=== PATIENT | female | born 1925 | race Caucasian/White ===

== ENCOUNTER 2016-12-19 11:13 | Inpatient (IN) ==
[2016-12-19] MEDS ORDERED: SALINE FLUSH 10ml SYRINGE IV ONE (11:14)
[2016-12-19] MEDS ORDERED: MIDAZOLAM 2mg/2ml INJECTION IVP ONE (11:14)
[2016-12-19] MEDS ORDERED: FentaNYL 100 MCG/2 ML INJECTION IVP ONE (11:14)
--- OUTSIDE RECORDS SUMMARY | 2016-12-19 11:33 | External Medical Summary | Summary of Care ---
:1925 Author Name Cris Reveles M.A., A Jill Address [address] [place], [place] [id number] Care Team Providers Name Role Phone Rosey Hatch, Nalini Gonzales Unavailable Unavailable Cris Reveles M.A., A Jill Unavailable Unavailable Tarwater D.O., Mohamud Unavailable Unavailable Nela Hatch, Derian Unavailable Unavailable PCP Not Assigned Unavailable Unavailable Unavailable Unavailable Unavailable Functional Status Functional Status Health Issues Name Dates Details Functional status health issues are not documented Status: Cognitive Status Health Issues Name Dates Details Cognitive status health issues are not documented Status: Problems Name Dates Details Lower back pain (724.2, M54.5) Status: Active Joint pain, knee (719.46, M25.569) Status: Active Pre-procedural examination (V72.84, Z01.818) Status: Active Fainting (780.2, R55) Status: Active Osteoarthritis of knee (715.36, M17.10) Status: Active Diabetic retinopathy (250.50, E11.319) Status: Active Arthralgia of multiple sites (719.49, M25.50) Status: Active Hypertension (401.9, I10) Status: Active Hypothyroidism (244.9, E03.9) Status: Active Atrial fibrillation (427.31, I48.91) Status: Active Diabetes mellitus (250.00, E11.9) Status: Active Posterior capsular opacification, 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 Quantity: 30 Refills: 0 Christian Currie M.D. Start Active BL Glucosamine-Chondroitin 250-200 MG TABS TAKE DIRECTED. Quantity: 30 Refills: 0 Rosey HatchChristian Start Active Calcium 600 + D 600-200 MG-UNIT Oral Tablet TAKE 1 TABLET DAILY. Quantity: 0 Refills: 0 Rosey HatchChristian Start Active Test Strips accucheck compact strips Quantity: 100 Refills: 3 Rosey HatchChristian Start Active Vitamin E 400 UNIT Oral Capsule Take one capsule daily. Refills: 0 Rosey HatchChristian Start 17-Nov-2009 Active Fish Oil 1200 MG Oral Capsule Take one tablet daily. Refills: 0 Rosey HatchChristian Start 17-Nov-2009 Active Potassium Chloride ER 8 MEQ Oral Tablet Extended Release TAKE 2 TABLET DAILY. Quantity: 180 Refills: 3 Nela MamieDerian Start 10-May-2010 Active Levoxyl 88 MCG Oral Tablet TAKE 1 TABLET DAILY. Quantity: 90 Refills: 4 Rosey HatchChristian Start 10-May-2010 Active Lisinopril 2.5 MG Oral Tablet TAKE 1 TABLET Daily in the evening Refills: 0 Tarryder DMohamud Mendez Start Active Furosemide 80 MG Oral Tablet TAKE 1 TABLET TWICE DAILY. 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 Procedures not documented Immunization Name Dates Details Pneumo (Pneumovax) on: 31-Jan-1999 Td on: 18-Jan-2004 Pneumo on: 14-Feb-2009 Family History Mother Name Dates Details Family history of Heart Disease (V17.49) Status: Active Father Name Dates Details Family history of Heart Disease (V17.49) Status: Active Social History Name Dates Details - Status: Smoking Status Name Dates Details Former smoker Vital Signs Date Test Result Details No Known Vitals to report Results Date Description Value Details Results not documented Plan of Care Name Dates Details Planned Observations Planned Goals not documented Instructions Name Dates Details Instructions not documented Encounters Appointment; Sathish Lujna M.D. On 04-Jun-2016 Encounter Diagnosis: Problem not documented 13:00 Appointment; Mohamud Neal D.O. On Encounter Diagnosis: Problem not documented 10:45
--- OUTSIDE RECORDS SUMMARY | 2016-12-19 11:33 | External Medical Summary | Referral Summary ---
:1925 [facility] Address [address] [place] [address] [place] [address] Care Team Providers Name Role Phone Ector Cabrera Primary Care Physician Encounter VC Date(s): 06/22/15 - 06/22/15 [facility] [place] [phone] [place] Discharge Disposition: 01-Home or Self Care Attending Physician: Ector Cabrera DO Admitting Physician: Ector Cabrera DO Vital Signs Most recent to oldest [Reference Range]: 1 Peripheral Pulse Rate [60-100 bpm] 89 bpm (06/22/15 9:38 AM) Blood Pressure [90-140/60-90 mmHg] 113/90 mmHg (06/22/15 9:38 AM) SpO2 96 % (06/22/15 9:38 AM) Problem List Condition Effective Dates Status Health Status Informant Obesity(Confirmed) Active patient Allergies, Adverse Reactions, Alerts Substance Reaction Severity Status sulfamethoxazole1 Active 1N/V Medications acetaminophen 325 mg oral tablet 650 mg 2 tabs, Oral, q6hr, as needed for pain, 0 Refill(s) Start Date: 06/15/15 Status: Orderedcalcium citrate Oral, BID, 0 Refill(s) Start Date: 05/05/14 Status: OrderedCentrum Daily, 0 Refill(s) Start Date: 05/05/14 Status: OrderedCoreg 6.25 mg, Oral, BID, 0 Refill(s) Start Date: 01/25/14 Status: Orderedfurosemide 40 mg oral tablet See Instructions, take 2 tablets at breakfast and 1 tablet at lunch, 0 Refill(s) Start Date: 01/25/14 Status: Orderedglucosamine Oral, 0 Refill(s) Start Date: 06/22/15 Status: Orderedlevothyroxine 88 mcg (0.088 mg) oral tablet 88 mcg 1 tabs, Oral, Daily, # 90 tabs, 3 Refill(s), Pharmacy: [facility], 1 tabs Oral Daily,x90 days Start Date: 01/18/15 Stop Date: 01/13/16 Status: Orderedlisinopril 2.5 mg oral tablet 1 tabs, Oral, Daily, 0 Refill(s) Start Date: 01/25/14 Status: OrderedMisc Medication See Instructions, glucosomine 15,000 g. daily, 0 Refill(s) Start Date: 05/05/14 Status: OrderedOmega Essentials caps, Oral, BID, 0 Refill(s) Start Date: 05/05/14 Status: Orderedpotassium chloride 8 mEq oral tablet, extended release 2 tabs, Oral, BID, 0 Refill(s) Start Date: 01/25/14 Status: OrderedpredniSONE 20 mg oral tablet 20 mg 1 tabs, Oral, Daily, X 5 days, # 5 tabs, 0 Refill(s), Pharmacy: [facility] #[id number], 1 tabs Oral Daily,x5 days Start Date: 06/22/15 Stop Date: 06/27/15 Status: OrderedProAir RespiClick 90 mcg/inh inhalation powder 2 puffs, Inhalation, q4hr, # 1 inhalers, 4 Refill(s), Pharmacy: [facility] #[id number] Start Date: 06/22/15 Status: Orderedsodium chloride 0.9% nasal spray 1 sprays, Nasal, q2hr, as needed for dry nasal passages, # 45 mL, 0 Refill(s) Start Date: 06/15/15 Status: Orderedvitamin E Oral, Daily, 0 Refill(s) Start Date: 05/05/14 Status: Orderedwarfarin 1 mg oral tablet mg tabs, Oral, Daily, 10mg on , W, F 8 mg on , Fri, , , 0 Refill(s) Start Date: 01/25/14 Status: OrderedZithromax Z-Mani 250 mg oral tablet 1 packets, Oral, Daily, as directed on package labeling, X 5 days, # 6 tabs, 0 Refill(s), Pharmacy: [facility] #[id number], 1 packets Oral Daily,x5 days, Instr:as directed on package labeling Start Date: 06/22/15 Stop Date: 06/27/15 Status: Ordered Results No data available for this section Immunizations Vaccine Date Refusal Reason influenza virus vaccine, inactivated 01/01/14 pneumococcal 13-valent conjugate vaccine 01/25/14 pneumococcal 23-polyvalent vaccine 02/14/09 pneumococcal 23-polyvalent vaccine 01/31/99 tetanus toxoid 01/18/04 zoster vaccine live 01/25/14 Procedures Procedure Date Related Diagnosis Body Site Carpal tunnel Cataracts Social History Social History Type Response Smoking Status Former smoker; Type: Cigarettes Assessment and Plan No data available for this section
--- OUTSIDE RECORDS SUMMARY | 2016-12-19 11:33 | External Medical Summary | Summary of Care ---
:1925 Author Organization [facility] Address [address] [place] [address] Phone Care Team Providers Name Role Phone Rosey Hatch, Nalini Gonzales Unavailable Unavailable Mohamud Neal D.O. Unavailable Unavailable Nela Hatch, Derian Unavailable Unavailable [...] Status: Active Myopia (367.1, H52.10) Status: Active Medications Name Dates Details Centrum Oral Tablet TAKE 1 TABLET DAILY. Quantity: 30 Refills: 0 Rosey Hatch, Christian Gayle Start Active BL Glucosamine-Chondroitin 250-200 MG TABS TAKE DIRECTED. Quantity: 30 Refills: 0 Rosey Hatch, Christian Gayle Start Active Calcium 600 + D 600-200 MG-UNIT Oral Tablet TAKE 1 TABLET DAILY. Quantity: 0 Refills: 0 Yackley M.D.Christian Start Active Test Strips accucheck compact strips [...] TABLET DAILY. Quantity: 180 Refills: 3 Nela Hatch, Derian Start 10-May-2010 Active Levoxyl 88 MCG Oral Tablet TAKE 1 TABLET DAILY. Quantity: 90 Refills: 4 Rosey HatchChristian Start 10-May-2010 Active Aspirin 325 MG Oral Tablet TAKE 1/2 TABLET DAILY. Refills: 0 Rosey HatchChristian Start Active Atenolol 25 MG Oral Tablet TAKE 2 IN THE AM AND 1 IN THE PM Quantity: 270 Refills: 30 Nela Hatch, Derian Start 16-Mar-2012 Active Warfarin Sodium 1 MG Oral Tablet TAKE THREE TABLETS BY MOUTH EVERY OTHER DAY Quantity: 270 Refills: 98 Rosey HatchChristian Start 15-Jul-2013 Active Warfarin Sodium 5 MG Oral Tablet Take one tablet daily. Quantity: 90 Refills: 3 Rosey Hatch, Christian Gayle Start 18-Feb-2013 Active Warfarin Sodium 1 MG Oral Tablet TAKE 2 TABLETS DAILY. Quantity: 180 Refills: 3 Rosey Hatch Christian Gayle Start 18-Feb-2013 Active Lisinopril 2.5 MG Oral Tablet TAKE 1 TABLET Daily in the evening Refills: 0 Mohamud Neal D.O. Start Active Furosemide 40 MG Oral Tablet TAKE 1 TABLET TWICE DAILY. Quantity: 180 Refills: 3 Nela Hatch, Derian Start Active Warfarin Sodium 1 MG Oral Tablet TAKE THREE TABLETS BY MOUTH EVERY OTHER DAY Quantity: 270 Refills: 5 Rosey Hatch, Christian Nalini Start 18-Feb-2013 Active Allergies and Adverse Reactions Name Dates Details Sulfa Drugs (Allergy) Reaction: Nausea, Vomiting Status: Active Procedures Procedure Dates Details History of Fine [...] Details Planned Observations Planned Goals not documented Planned Encounters Appointment; Provider: Derian Rondon M.D. On 01-Apr-2012 10:00 Appointment; Provider: Derian Rondon M.D. On 25-Mar-2012 10:00 Instructions Name Dates Details Instructions not documented Encounters Appointment; Mohamud Neal D.O. On Encounter Diagnosis: Problem not documented 10:45
--- OUTSIDE RECORDS SUMMARY | 2016-12-19 11:33 | External Medical Summary | Referral Summary ---
:1925 Author Organization [facility] Address [address] [place] [address] [place] [address] Care Team Providers Name Role Phone Ector Cabrera Primary Care Physician Encounter VC Date(s): 01/18/15 - 01/18/15 [facility] [place] [phone] Discharge Diagnosis: Knee pain, right Discharge Diagnosis: Adult onset hypothyroidism Discharge Disposition: 01-Home or Self Care Attending Physician: Ector Cabrera DO Admitting Physician: Ector Cabrera DO Vital Signs Most recent to oldest [Reference Range]: 1 Temperature Tympanic [36.6-38.1 degC] 36 degC *LOW* (01/18/15 1:21 PM) Peripheral Pulse Rate [60-100 bpm] 78 bpm (01/18/15 1:21 PM) Blood Pressure [90-140/60-90 mmHg] 142/82 mmHg *HI* (01/18/15 1:21 PM) Problem List Condition Effective Dates Status Health Status Informant Obesity(Confirmed) Active patient Allergies, Adverse Reactions, Alerts Substance Reaction Severity Status sulfamethoxazole1 Active 1N/V Medications aspirin 325 mg oral tablet 0.5 tabs, Oral, Daily, 0 Refill(s) Start Date: 01/25/14 Status: Orderedcalcium citrate Oral, BID, 0 Refill(s) Start Date: 05/05/14 Status: OrderedCentrum Daily, 0 Refill(s) Start Date: 05/05/14 Status: OrderedCoreg 12.5 mg, Oral, BID, 0 Refill(s) Start Date: 01/25/14 Status: Orderedfurosemide 40 mg oral tablet 2 tabs, Oral, BID, 0 Refill(s) Start Date: 01/25/14 Status: Orderedlevothyroxine 88 mcg (0.088 mg) oral tablet 88 mcg 1 tabs, Oral, Daily, # 90 tabs, 3 Refill(s), Pharmacy: [facility], 1 tabs Oral Daily,x90 days [...] BID, 0 Refill(s) Start Date: 01/25/14 Status: Orderedvitamin E Oral, Daily, 0 Refill(s) Start Date: 05/05/14 Status: Orderedwarfarin 1 mg oral tablet tabs, Oral, Daily, 7 mg. and 8 mg., 0 Refill(s) Start Date: 01/25/14 Status: OrderedZyrTEC Daily, 0 Refill(s) Start Date: 06/07/14 Status: Ordered Results Chemistry Most recent to oldest [Reference Range]: 1 TSH with Reflex Free T4 [0.35-4.94] 2.93 (01/18/15 2:13 PM) Immunizations Vaccine Date Refusal Reason influenza virus vaccine, inactivated 01/01/14 pneumococcal 13-valent conjugate vaccine 01/25/14 pneumococcal 23-polyvalent vaccine 02/14/09 pneumococcal 23-polyvalent vaccine 01/31/99 tetanus toxoid 01/18/04 zoster vaccine live 01/25/14 Procedures Procedure Date Related Diagnosis Body Site Arthrocentesis, aspiration and/or injection, 01/18/15 major joint or bursa (eg, shoulder, hip, knee, subacromial bursa); without ultrasound guidance Carpal tunnel Cataracts Social History Social History Type Response Smoking Status Former smoker; Type: Cigarettes Assessment and Plan Extracted from: Title: Ambulatory Patient Education Author: Ector Cabrera DO Date: 01/18/15 Family Medicine Hypothyroidism The thyroid is a large gland located in the lower front of your neck. The thyroid gland helps control metabolism. Metabolism is how your body handles food. It controls metabolism with the hormone thyrox ine. When this gland is underactive (hypothyroid), it produces too little hormone. CAUSES These include: Absence or destruction of thyroid tissue. Goiter due to iodine deficiency. Goiter due to medications. Congenital defects (since ). Problems with the pituitary. This causes a lack of TSH (thyroid stimulating hormone). This hormone tells the thyroid to porcelain turner more hormone. SYMPTOMS Lethargy (feeling as though you have no energy) Cold intolerance Weight gain (in spite of normal food intake) Dry skin Coarse hair Menstrual irregularity (if severe, may lead to infertility) Slowing of thought processes Cardiac problems are also caused by insufficient amounts of thyroid hormone. Hypothyroidism in the is cretinism, and is an extreme form. It is important that this form be treated adequately and immediately or it will lead rapidly to retarded physical and mental development. DIAGNOSIS To prove hypothyroidism, your caregiver may do blood tests and ultrasound tests. Sometimes the signs are hidden. It may be necessary for your caregiver to watch this illness with blood tests either before or after diagnosis and treatment. TREATMENT Low levels of thyroid hormone are increased by using synthetic thyroid hormone. This is a safe, effective treatment. It usually takes about four weeks to gain the full effects of the medication. After y ou have the full effect of the medication, it will generally take another four weeks for problems to leave. Your caregiver may start you on low doses. If you have had heart problems the dose may be grad ually increased. It is generally not an emergency to get rapidly to normal. HOME CARE INSTRUCTIONS Take your medications as your caregiver suggests. Let your caregiver know of any medications you are taking or start taking. Your caregiver will help you with dosage schedules. As your condition improves, your dosage needs may increase. It will be necessary to have continuing blood tests as suggested by your caregiver. Report all suspected medication side effects to your caregiver. SEEK MEDICAL CARE IF: Seek medical care if you develop: Sweating. Tremulousness (tremors). Anxiety. Rapid weight loss. Heat intolerance. Emotional swings. Diarrhea. Weakness. SEEK IMMEDIATE MEDICAL CARE IF: You develop chest pain, an irregular heart beat (palpitations), or a rapid heart beat. MAKE SURE YOU: Understand these instructions. Will watch your condition. Will get help right away if you are not doing well or get worse. Document Released: 02/17/2006 Document Revised: 05/11/2012 Document Reviewed: 10/07/2008 [facility] Patient Information 2015 [employer]. This information is not intended to replace advice given to you by your health care provider. Make sure you discuss any questions you have with your health care provider. Joint Injection Care After Refer to this sheet in the next few days. These instructions provide you with information on caring for yourself after you have had a joint injection. Your caregiver also may give you more specific inst ructions. Your treatment has been planned according to current medical practices, but problems sometimes occur. Call your caregiver if you have any problems or questions after your procedure. After any type of joint injection, it is not uncommon to experience: Soreness, swelling, or bruising around the injection site. Mild numbness, tingling, or weakness around the injection site caused by the numbing medicine used before or with the injection. It also is possible to experience the following effects associated with the specific agent after injection: Iodine-based contrast agents: Allergic reaction (itching, hives, widespread redness, and swelling beyond the injection site). Corticosteroids (These effects are rare.): Allergic reaction. Increased blood sugar levels (If you have diabetes and you notice that your blood sugar levels have increased, notify your caregiver). Increased blood pressure levels. Mood swings. Hyaluronic acid in the use of viscosupplementation. Temporary heat or redness. Temporary rash and itching. Increased fluid accumulation in the injected joint. These effects all should resolve within a day after your procedure. HOME CARE INSTRUCTIONS Limit yourself to light activity the day of your procedure. Avoid lifting heavy objects, bending, stooping, or twisting. Take prescription or dzyq-hfd-aadjitc pain medication as directed by your caregiver. You may apply ice to your injection site to reduce pain and swelling the day of your procedure. Ice may be applied 03-04 times: Put ice in a plastic bag. Place a towel between your skin and the bag. Leave the ice on for no longer than 15-20 minutes each time. SEEK IMMEDIATE MEDICAL CARE IF: Pain and swelling get worse rather than better or extend beyond the injection site. Numbness does not go away. Blood or fluid continues to leak from the injection site. You have chest pain. You have swelling of your face or tongue. You have trouble breathing or you become dizzy. You develop a fever, chills, or severe tenderness at the injection site that last longer than 1 day. MAKE SURE YOU: Understand these instructions. Watch your condition. Get help right away if you are not doing well or if you get worse. Document Released: 10/31/2011 Document Revised: 05/11/2012 Document Reviewed: 10/31/2011 [facility] Patient Information 2015 [facility]. This information is not intended to replace advice given to you by your health care provider. Make sure you discuss any questions you have with your health care provider. Knee Injection Joint injections are shots. Your caregiver will place a needle into your knee joint. The needle is used to put medicine into the joint. These shots can be used to help treat different painful knee condi tions such as osteoarthritis, bursitis, local flare-ups of rheumatoid arthritis , and pseudogout. Anti-inflammatory medicines such as corticosteroids and anesthetics are the most common medicines used for joint and soft tissue injections. PROCEDURE The skin over the kneecap will be cleaned with an antiseptic solution. Your caregiver will inject a small amount of a local anesthetic (a medicine like Novocaine) just under the skin in the area that was cleaned. After the area becomes numb, a second injection is done. This second injection usually includes an anesthetic and an anti-inflammatory medicine called a steroid or cortisone. The needle is carefull y placed in between the kneecap and the knee, and the medicine is injected into the joint space. After the injection is done, the needle is removed. Your caregiver may place a bandage over the injection site. The whole procedure takes no more than a couple of minutes. BEFORE THE PROCEDURE Wash all of the skin around the entire knee area. Try to remove any loose, scaling skin. There is no other specific preparation necessary unless advised otherwise by your caregiver. LET YOUR CAREGIVER KNOW ABOUT: Allergies. Medications taken including herbs, eye drops, over the counter medications , and creams. Use of steroids (by mouth or creams). Possible , if applicable. Previous problems with anesthetics or Novocaine. History of blood clots (thrombophlebitis). History of bleeding or blood problems. Previous surgery. Other health problems. RISKS AND COMPLICATIONS Side effects from cortisone shots are rare. They include: Slight bruising of the skin. Shrinkage of the normal fatty tissue under the skin where the shot was given. Increase in pain after the shot. Infection. Weakening of tendons or tendon rupture. Allergic reaction to the medicine. Diabetics may have a temporary increase in their blood sugar after a shot. Cortisone can temporarily weaken the immune system. While receiving these shots, you should not get certain vaccines. Also, avoid contact with anyone who has chickenpox or measles. Especially if yo u have never had these diseases or have not been previously immunized. Your immune system may not be strong enough to fight off the infection while the cortisone is in your system. AFTER THE PROCEDURE You can go home after the procedure. You may need to put ice on the joint 15-20 minutes every 3 or 4 hours until the pain goes away. You may need to put an elastic bandage on the joint. HOME CARE INSTRUCTIONS Only take xscf-aev-ryvuuzc or prescription medicines for pain, discomfort , or fever as directed by your caregiver. You should avoid stressing the joint. Unless advised otherwise, avoid activities that put a lot of pressure on a knee joint, such as: Jogging. Bicycling. Recreational climbing. Hiking. Laying down and elevating the leg/knee above the level of your heart can help to minimize swelling. SEEK MEDICAL CARE IF: You have repeated or worsening swelling. There is drainage from the puncture area. You develop red streaking that extends above or below the site where the needle was inserted. SEEK IMMEDIATE MEDICAL CARE IF: You develop a fever. You have pain that gets worse even though you are taking pain medicine. The area is red and warm, and you have trouble moving the joint. MAKE SURE YOU: Understand these instructions. Will watch your condition. Will get help right away if you are not doing well or get worse. Document Released: 05/11/2007 Document Revised: 05/11/2012 Document Reviewed: 02/05/2008 [employer] Patient Information 2015 [employer]. This information is not intended to replace advice given to you by your health care provider. Make sure you discuss any questions you have with your health care provider. No follow up information was provided. Extracted from: Title: Hypothyroidism and right knee injection Author: Ector Cabrera DO Date: 01/18/15 Assessment/Plan Adult onset hypothyroidism 1. Continue levothyroxine at 88 g per day. 2. TSH checked today, report is pending. We will adjust her medication accordingly. Ordered: Office Visit Level 4 Est 47691 TSH with Reflex Free T4 Knee pain, right 1. History and clinical finding is consistent with degenerative arthritis of the knee. Treatment plan discussed in detail with the patient. I advised her that if steroid injecti on has helped in the pastthen it would be best that we do the steroid. Lately the insurance companies have not been wanting to pay for Synvisc. Patient voiced understanding and was agreeable for the injection today. Procedure: Knee injection. Indication: Joint pain secondary to degenerative arthritis. Location: Right Medication: 1cc 1% Lidocaine without epinephrine, 1cc Marcaine, 80mg Kenalog. Description: Following verbal informed consent, the patient was placed in a supine position with the knee flexed at 15. Using lateral approach, landmarks identified for injection. The area was cleansed with alcohol, followed by Betadine. Using sterile technique, a combination of the lidocaine, Marcaine and Kenalog was injected into the synovial joint with minimal resistance. Patient tolerated procedure well. The area was cleansed and compression bandage was applied. Wound care instructions provided. Patient advised to follow-up if there is any concerns of swelling, worsening pain, redness, or any concern for infection. We may repeat the injection in 3 months. If treatment does not last for 3 months, then alternative treatments may be needed, or referral to orthopedic surgeon. Patient voiced understanding of all the above information and instructions. Ordered: Arthro/Asp Major Joint Inj (Shoulder, Hip, Knee) Office Visit Level 4 Est 84373 Orders: levothyroxine, 88 mcg 1 tabs, Oral, Daily, # 90 tabs, 3 Refill(s), Pharmacy: [facility], 1 tabs Oral Daily,x90 days
--- OUTSIDE RECORDS SUMMARY | 2016-12-19 11:33 | External Medical Summary | Referral Summary ---
:1925 Author Organization [facility] [place] [address] Care Team Providers Name Role Phone Ector Cabrera Primary Care Physician Encounter VC Date(s): 02/06/16 - 02/06/16 [facility] [place] [phone] [place] Discharge Diagnosis: CKD (chronic kidney disease), stage III Discharge Diagnosis: Right knee DJD Discharge Diagnosis: Medication management Discharge Diagnosis: HTN (hypertension) Discharge Diagnosis: Chronic CHF Discharge Disposition: 01-Home or Self Care Attending Physician: Ector Cabrera DO Admitting Physician: Ector Cabrera DO Vital Signs Most recent to oldest [Reference Range]: 1 Temperature Tympanic [36.6-38.1 degC] 36 degC *LOW* (02/06/16 10:00 AM) Peripheral Pulse Rate [60-100 bpm] 98 bpm (02/06/16 10:00 AM) Blood Pressure [90-140/60-90 mmHg] 127/80 mmHg (02/06/16 10:00 AM) Problem List Condition Effective Dates Status Health Status Informant Obesity(Confirmed) Active patient Allergies, Adverse Reactions, Alerts Substance Reaction Severity Status sulfamethoxazole1 Active 1N/V Medications acetaminophen 325 mg oral tablet 650 mg 2 tabs, Oral, q6hr, as needed for pain, 0 Refill(s) Start Date: 06/15/15 Status: Orderedcalcium citrate Oral, BID, 0 Refill(s) Start Date: 05/05/14 Status: Orderedcarvedilol See Instructions, 3.5mg BID, 0 Refill(s) Start Date: 02/06/16 Status: OrderedCentrum Daily, 0 Refill(s) Start Date: 05/05/14 Status: Orderedfurosemide 40 mg oral tablet See Instructions, take 2 tablets at breakfast and 1 tablet at lunch, 0 Refill(s) Start Date: 01/25/14 Status: OrderedGlucometer Lancets (DME) DME Item ORDER: Accu-chek Compact Plus Lancets, test once every morning fasting. Dx: E11.9, See Instructions, # 1 boxes, 3 Refill(s), Pharmacy: [facility] #[id number], ORDER: Accu-chek Compact Plus Lancets, test once every morning fasting. Dx: E11... Start Date: 12/20/15 Status: OrderedGlucometer strips (DME) DME Item ORDER: Accu-chek Compact Plus Test Strips, test once every morning fasting. Dx: E11.9, SeeInstructions, # 1 bottles, 3 Refill(s), Pharmacy: [facility] #[id number], ORDER: Accu-chek CompactPlus Test Strips, test once every morning fasting... Start Date: 12/20/15 Status: Orderedglucosamine Oral, 0 Refill(s) Start Date: 06/22/15 Status: Orderedlevothyroxine 88 mcg (0.088 mg) oral tablet See Instructions, Take 1 tablet by mouth every day, # 90 tabs, 2 Refill(s), eRx : [facility], Take 1 tablet by mouth every day Start Date: 12/18/15 Status: Orderedlisinopril 2.5 mg oral tablet 1 [...] tablet mg tabs, Oral, Daily, 10mg on M, W, F 8 mg on Sa, Fri, , Thur, 0 Refill(s) Start Date: 01/25/14 Status: Ordered Results No data available for this section Immunizations Vaccine Date Refusal Reason influenza virus vaccine, inactivated 11/29/15 influenza virus vaccine, inactivated 01/01/14 pneumococcal 13-valent conjugate vaccine 02/06/16 pneumococcal 13-valent conjugate vaccine 01/25/14 pneumococcal 23-polyvalent vaccine 02/14/09 pneumococcal 23-polyvalent vaccine 01/31/99 tetanus toxoid 01/18/04 zoster vaccine live 01/25/14 Procedures Procedure Date Related Diagnosis Body Site Carpal tunnel Cataracts Social History Social History Type Response Smoking Status Former smoker; Type: Cigarettes Assessment and Plan Extracted from: Title: Office Visit Note Author: RickEctor Date: 02/06/16 Assessment/Plan 1.Medication management 1. Continue with medications as previous. 2. Repeat CMP and CBC in 6 months. 3. Follow-up in 6 months for reevaluation 4. Pneumonia 23 vaccination given today. Ordered: Office Visit Level 4 Est 13044 2.Right knee DJD 1. We will check with her insurance if they cover Synvisc, if they do then we will order it and have her come in weekly for 3 intra-articular injection. 2. Continue with Tylenol as needed for pain. 3. Continue with the use of walker for support. Ordered: Office Visit Level 4 Est 19956 3.HTN (hypertension) 1. Blood pressure is controlled at this time. 2. Continue with low salt diet. 3. Continue with current medications. Ordered: Office Visit Level 4 Est 07106 4.Chronic CHF 1. Low-salt diet. 2. The blood pressure management. 3. Fluid restriction as per Dr. Flower. Ordered: Office Visit Level 4 Est 44512 5.CKD (chronic kidney disease), stage III 1. Avoid dehydration 2. Avoid NSAIDs, instead she may use Tylenol for pain 3. Recheck basic metabolic profile in 6 months.
--- OUTSIDE RECORDS SUMMARY | 2016-12-19 11:33 | External Medical Summary | Summary of Care ---
:1925 Author Organization [facility] Address [address] [place] [address] Phone Care Team Providers Name Role Phone [...] [id number]) Status: Active Medications Name Dates Details Calcium 600 + D 600-200 MG-UNIT Oral Tablet TAKE 1 TABLET DAILY. Quantity: 0 Refills: 0 Rosey Hatch, Christian Gayle Start Active Vitamin E 400 UNIT Oral Capsule Take one capsule daily. Refills: 0 Rosey Hatch, Christian Gayle Start 17-Nov-2009 Active Fish Oil 1200 MG Oral Capsule Take one tablet daily. Refills: 0 Rosey Hatch, Christian Gayle Start 17-Nov-2009 Active Potassium Chloride ER 8 MEQ Oral Tablet Extended Release TAKE 2 TABLET DAILY. Quantity: 180 Refills: 3 Nela HatchDerian Start 10-May-2010 Active Levoxyl 88 MCG Oral Tablet TAKE 1 TABLET DAILY. Quantity: 90 Refills: 4 Rosey Hatch, Christian Gayle Start 10-May-2010 Active Furosemide 80 MG Oral Tablet TAKE 1 TABLET TWICE DAILY. Refills: 0 Start 04-Jun-2016 Active Warfarin Sodium 2 MG Oral Tablet 8mg x 4 days per week, 10mg x 2 days per week, 5mg x 1 day per week Refills: 0 Start 04-Jun-2016 Active Lisinopril 2.5 MG Oral Tablet TAKE 1 TABLET Daily in the evening Refills: 0 Mohamud Neal D.O. Start Active Test Strips accucheck compact strips Quantity: 100 Refills: 3 Rosey Hatch, Christian Gayle Start Active BL Glucosamine-Chondroitin 250-200 MG TABS TAKE DIRECTED. Quantity: 30 Refills: 0 Rosey Hatch, Christian Gayle Start Active Centrum Oral Tablet TAKE 1 TABLET DAILY. Quantity: 30 Refills: 0 Rosey Hatch, Christian Gayle Start Active Allergies and Adverse Reactions Name Dates [...] Dates Details Instructions not documented Encounters Appointment; Shilpa Reveles M.A.|Cris On 04-Jun-2016 Encounter Diagnosis: Problem not documented 13:30 Appointment; Sathish Lujan M.D. On 04-Jun-2016 Encounter Diagnosis: Problem not documented 13:00 Appointment; Mohamud Neal D.O. On Encounter Diagnosis: Problem not documented 10:45"
--- OUTSIDE RECORDS SUMMARY | 2016-12-19 11:33 | External Medical Summary | Referral Summary ---
:1925 Author Organization [facility] Address [address] [place] [address] Care Team Providers Name Role Phone CarmenzeeshanEctor Primary Care Physician Encounter [facility] [phone] Date(s): 08/30/14 - 08/30/14 [facility] [address] [place] [address]- [place] Discharge Diagnosis: SNHL (sensorineural hearing loss) Discharge Diagnosis: ETD (eustachian tube dysfunction) Discharge Disposition: 01-Home or Self Care Attending Physician: Kyung Deleon DO Admitting Physician: Kyung Deleon DO Vital Signs No data available for this section Problem List Condition Effective Dates Status Health [...] Daily, # 90 tabs, 3 Refill(s), Pharmacy: [facility], 1 tabs Oral Daily,x90 days [...] Refill(s) Start Date: 06/07/14 Status: Ordered Results No data available for [...] Extracted from: Title: Ambulatory Patient Education Author: Kyung Deleon DO Date: Family Medicine Hearing Loss A hearing loss is sometimes called deafness. Hearing loss may be partial or total. CAUSES Hearing loss may be caused by: Wax in the ear canal. Infection of the ear canal. Infection of the middle ear. Trauma to the ear or surrounding area. Fluid in the middle ear. A hole in the eardrum (perforated eardrum ). Exposure to loud sounds or music. Problems with the hearing nerve. Certain medications. Hearing loss without wax, infection, or a history of injury may mean that the nerve is involved. Hearing loss with severe dizziness, nausea and vomiting or ringing in the ear may suggest a hearing nerve irritation or problems in the middle or inner ear. If hearing loss is untreated, there is a greater likelihood for residual or permanent hearing loss. DIAGNOSIS A hearing test (audiometry) assesses hearing loss. The audiometry test needs to be performed by a speech and hearing director (electrical tester ). TREATMENT Treatment for recent onset of hearing loss may include: Ear wax removal. Medications that kill germs (antibiotics ). Cortisone medications. Prompt follow up with the appropriate specialist. Return of hearing depends on the cause of your hearing loss, so proper medical follow-up is important. Some hearing loss may not be reversible, and a caregiver should discuss care and treatment options with you. SEEK MEDICAL CARE IF: You have a severe headache, dizziness, or changes in vision. You have new or increased weakness. You develop repeated vomiting or other serious medical problems. You have a fever. Document Released: 02/17/2006 Document Revised: 05/11/2012 Document Reviewed: 06/14/2010 [facility] Patient Information 2014 [employer]. No follow up information was provided. Extracted from: Title: Office Visit Note Author: Kyung Deleon DO Date: 08/30/14 Assessment/Plan ETD (eustachian tube dysfunction) Passes on steroid taper Nasocort BID Defer decongestants 2/2 heart Reviewed options to treat eustachian tube dysfunction. Options reviewed including, medical mgmt, steroids, nasal spray, allergy treatment and observation. There are not surgical options that are readi ly available to treat eustachian tube dysfunction. We discussed that in some individuals a myringotomy tube will help but in some it can worsen. Additionally , the risk of a TM perforation is higher in ETD. Will trial above treatment and FU PRN SNHL (sensorineural hearing loss) Likely secondary to hearing loss in the right ear Recheck in 6 mos
--- OUTSIDE RECORDS SUMMARY | 2016-12-19 11:33 | External Medical Summary | Referral Summary ---
:1925 Author [facility] Address [address] [place] [address] [place] [address] Care Team Providers Name Role Phone Ector Cabrera Primary Care Physician Encounter [facility] Date(s): 01/23/15 - 01/23/15 [facility] [place] [address] Discharge Disposition: 01-Home or Self Care Attending Physician: Ector Cabrera DO Admitting Physician: Ector Cabrera DO Vital Signs Most recent to oldest [Reference Range]: 1 Temperature Tympanic [36.6-38.1 degC] 35.8 degC *LOW* (01/23/15 9:41 AM) Peripheral Pulse Rate [60-100 bpm] 94 bpm (01/23/15 9:41 AM) Blood Pressure [90-140/60-90 mmHg] 155/80 mmHg *HI* (01/23/15 9:41 AM) Problem List Condition Effective Dates Status [...] Daily, # 90 tabs, 3 Refill(s), Pharmacy: [facility], 1 tabs Oral Daily,x90 days [...] Diagnosis Body Site Arthrocentesis, aspiration and/or injection, 01/23/15 major joint or bursa (eg, shoulder, hip, knee, subacromial bursa); without ultrasound guidance Carpal tunnel Cataracts Social History Social History Type Response Smoking Status Former smoker; Type: Cigarettes Assessment and Plan Extracted from: Title: Office Visit Note Author: Ector Cabrera DO Date: 01/23/15 Assessment/Plan Left knee pain Pathophysiology of this presentation, and differential diagnosis, discussed in detail with the rafiq neely . All questions were answered. 1. Clinical finding consistent with degenerative arthritis of the knee joint. Knee injection recommended to which the patient agreed. Procedure: Knee injection Indication: Symptomatic arthritis Location: Left knee Medications: 80 mg of Kenalog, 1 mL of Marcaine and 1 mL of lidocaine without epinephrine. Description: Following informed consent, the patient was placed in the supine position, landmarks for knee injection identified and demarcated. The lateral aspect of the knee was cleansed with Betadine to create a sterile field. Using sterile technique, a combination of Kenalog, Marcaine and lidocaine was injected into the synovial space. Patient tolerated treatment well. Dry dressing was applied and wound care instructions provided. Follow-up as needed. Ordered: Arthro/Asp Major Joint Inj (Shoulder, Hip, Knee) 53244 Office Visit Level 3 Est 97353
--- OUTSIDE RECORDS SUMMARY | 2016-12-19 11:33 | External Medical Summary | Summary of Care ---
:1925 Author Care Team Providers Name Role Phone Nalini Currie M.D. Unavailable Unavailable Derian Rondon M.D. Unavailable Unavailable PCP Not Assigned Primary Care Provider Unavailable Unavailable Unavailable Unavailable Functional Status Functional [...] Status: Active Fainting (780.2, R55) Status: Active Myopia (367.1, H52.10) Status: Active Osteoarthritis of knee (715.96, M17.9) Status: Active Diabetic retinopathy (250.50, E11.319) Status: Active Arthralgia of multiple sites (719.49, M25.50) Status: Active Posterior capsular opacification, obscuring vision (366.53, H26.499) Status : Active Pseudophakia of both eyes (V43.1, Z96.1) Status: Active Diabetes mellitus (250.00, E11.9) Status: Active Hypertension (401.9, I10) Status: Active Hypothyroidism (244.9, E03.9) Status: Active Atrial fibrillation (427.31, I48.91) Status: Active Medications Name Dates Details Furosemide 40 MG Oral Tablet TAKE 1 TABLET TWICE DAILY. Quantity: 180 Refills: 3 Derian Rondon M.D. Started ActiveCentrum Oral Tablet TAKE 1 TABLET DAILY. Quantity: 30 Refills: 0 Christian Currie M.D. Started ActiveBL Glucosamine-Chondroitin 250-200 MG TABS TAKE DIRECTED. Quantity: 30 Refills: 0 Christian Currie M.D. Started ActiveCalcium 600 + D 600-200 MG-UNIT Oral Tablet TAKE 1 TABLET DAILY. Quantity: 0 Refills: 0 Christian Currie M.D. Started ActiveTest Strips accucheck compact strips Quantity: 100 Refills: 3 Christian Currie M.D. Started ActiveVitamin E 400 UNIT Oral Capsule Take one capsule daily. Refills: 0 Christian Currie M.D. Started 17-Nov-2009 ActiveFish Oil 1200 MG Oral Capsule Take one tablet daily. Refills: 0 Christian Currie M.D. Started 17-Nov-2009 ActivePotassium Chloride ER 8 MEQ Oral Tablet Extended Release TAKE 2 TABLET DAILY. Quantity: 180 Refills: 3 Derian Rondon M.D. Started 10-May-2010 ActiveLevoxyl 88 MCG Oral Tablet TAKE 1 TABLET DAILY. Quantity: 90 Refills: 4 Christian Currie M.D. Started 10-May-2010 ActiveAspirin 325 MG Oral Tablet TAKE 1/2 TABLET DAILY. Refills: 0 Christian Currie M.D. Started ActiveAtenolol 25 MG Oral Tablet TAKE 2 IN THE AM AND 1 IN THE PM Quantity: 270 Refills: 30 Derian Rondon M.D. Started 16-Mar-2012 ActiveWarfarin Sodium 1 MG Oral Tablet TAKE THREE TABLETS BY MOUTH EVERY OTHER DAY Quantity: 270 Refills: 98 Christian Currie M.D. Started 15-Jul-2013 ActiveWarfarin Sodium 5 MG Oral Tablet Take one tablet daily. Quantity: 90 Refills: 3 Christian Currie M.D. Started 18-Feb-2013 ActiveWarfarin Sodium 1 MG Oral Tablet TAKE 2 TABLETS DAILY. Quantity: 180 Refills: 3 Christian Currie M.D. Started 18-Feb-2013 ActiveWarfarin Sodium 1 MG Oral Tablet Take 3 tablets every other day. Quantity: 270 Refills: 3 Christian Currie M.D. Started 18-Feb-2013 Active Allergies and Adverse Reactions Name Dates Details Sulfa Drugs Reaction: Nausea, Vomiting Status: Active Procedures Procedure Dates Details History of Fine Needle Aspiration History of Neuroplasty Decompression Median Nerve At Carpal Tunnel Procedures not documented Immunization Name Dates Details Pneumo (Pneumovax) Administered on:31-Jan-1999 Td Administered on:18-Jan-2004 Pneumo Administered on:14-Feb-2009 Family History Mother Name Dates Details Family history of Heart Disease (V17.49) Status: Active Father Name Dates Details Family history of Heart Disease (V17.49) Status: Active Social History Name Dates Details Smoking StatusFormer smoker Vital Signs Date Test Result Details No Known Vitals to report Results Date Description Value Details Results not documented Plan of Care Planned Observations Name Dates Details Planned Goals not documented Goal Planned Encounters Appointment; Provider: Mohamud Neal On 10:45 Appointment; Provider: Derian Rondon On 01-Apr-2012 10:00 Appointment; Provider: Derian Rondon On 25-Mar-2012 10:00 Instructions Instructions not documented Encounters Appointment; Christian Currie On 09-Nov-2013 Encounter Diagnosis: Problem not documented 15:00 Appointment; Mohamud Neal On Encounter Diagnosis: Problem not documented 10:15 Appointment; Christian Currie On 18-Jun-2013 Encounter Diagnosis: Problem not documented 10:15 Appointment; Christian Currie On 18-Feb-2013 Encounter Diagnosis: Problem not documented 10:15 Appointment; Christian Currie On 16-Feb-2013 Encounter Diagnosis: Problem not documented 10:45 Appointment; Christian Currie On 13-Oct-2012 Encounter Diagnosis: Problem not documented 10:15 Appointment; Derian Rondon On Encounter Diagnosis: Problem not documented 10:45
--- OUTSIDE RECORDS SUMMARY | 2016-12-19 11:33 | External Medical Summary | Referral Summary ---
:1925 Author Organization [facility] Address [address] [place] [address] Care Team Providers Name Role Phone Ector Cabrera Primary Care Physician Encounter [facility] Date(s): 08/30/14 - 08/30/14 [facility] [address] [place] [address]- Discharge Diagnosis: Bilateral sensorineural hearing loss Discharge Disposition: 01-Home or Self Care Attending Physician: Devi Mojica Vital Signs No data available for this [...] Daily, # 90 tabs, 3 Refill(s), Pharmacy: [facility], 1 tabs Oral Daily,x90 days [...]
--- OUTSIDE RECORDS SUMMARY | 2016-12-19 11:34 | External Medical Summary | Summary of Care ---
:1925 Author Organization [facility] Address [address] [place] [address] Phone Care Team Providers Name Role Phone [...] R55) Status: Active Osteoarthritis of knee (715.36, M17.9) Status: Active Diabetic retinopathy (250.50, E11.319) [...] H52.10) Status: Active Medications Name Dates Details Furosemide 40 MG Oral Tablet TAKE 1 TABLET TWICE DAILY. Quantity: 180 Refills: 3 Nela Hatch, Derian Start Active Centrum Oral Tablet TAKE 1 [...] 3 Rosey Hatch, Christian Gayle Start Active Vitamin E 400 UNIT Oral Capsule Take one capsule daily. Refills: 0 Rosey HatchChristian Start 17-Nov-2009 Active Fish Oil 1200 MG Oral Capsule Take one tablet daily. Refills: 0 Rosey Hatch, Christian Gayle Start 17-Nov-2009 Active Potassium Chloride ER 8 MEQ Oral Tablet Extended Release TAKE 2 TABLET DAILY. Quantity: 180 Refills: 3 Nela Hatch Derian Start 10-May-2010 Active Levoxyl 88 MCG Oral Tablet TAKE 1 TABLET DAILY. Quantity: 90 Refills: 4 Rosey HatchChristian Start 10-May-2010 Active Aspirin 325 MG Oral Tablet TAKE 1/2 TABLET DAILY. Refills: 0 Rosey HatchChristian Start Active Atenolol 25 MG Oral Tablet TAKE 2 IN THE AM AND 1 IN THE PM Quantity: 270 Refills: 30 Nela Hatch Derian Start 16-Mar-2012 Active Warfarin Sodium 1 MG Oral Tablet TAKE THREE TABLETS BY MOUTH EVERY OTHER DAY Quantity: 270 Refills: 98 Rosey Hatch, Christian Gayle Start 15-Jul-2013 Active Warfarin Sodium 5 MG Oral Tablet Take one tablet daily. Quantity: 90 Refills: 3 Rosey HatchChristian Start 18-Feb-2013 Active Warfarin Sodium 1 MG Oral Tablet TAKE 2 TABLETS DAILY. Quantity: 180 Refills: 3 Rosey Hatch, Christian Gayle Start 18-Feb-2013 Active Warfarin Sodium 1 MG Oral Tablet TAKE THREE TABLETS BY MOUTH EVERY OTHER DAY Quantity: 270 Refills: 5 Rosey Hatch, Christian Gayle Start 18-Feb-2013 Active Lisinopril 2.5 MG Oral Tablet TAKE 1 TABLET Daily in the evening Refills: 0 Mohamud Neal D.O. Start Active Allergies and Adverse Reactions Name [...] Goals not documented Planned Encounters Appointment; Provider: Sathish Lujan M.D. On 04-Jun-2016 13:00 Appointment; Provider: Derian Rondon M.D. On 01-Apr-2012 10:00 Appointment; Provider: Derian Rondon M.D. On 25-Mar-2012 10:00 Instructions Name Dates Details Instructions not documented Encounters Appointment; Mohamdu Neal D.O. On Encounter Diagnosis: Problem not documented 10:45
--- OUTSIDE RECORDS SUMMARY | 2016-12-19 11:34 | External Medical Summary | Referral Summary ---
:1925 [facility] Address [address] [place] [address] [place] [address] Care Team Providers Name Role Phone Ector Cabrera Primary Care Physician Encounter [facility] Date(s): 06/26/15 - 06/26/15 [facility] [place] [address] Discharge Diagnosis: Acute bacterial bronchitis Discharge Disposition: 01-Home or Self Care Attending Physician: Ector Cabrera DO Admitting Physician: Ector Cabrera DO Vital Signs Most recent to oldest [Reference Range]: 1 Temperature Tympanic [36.6-38.1 degC] 36.4 degC *LOW* (06/26/15 10:29 AM) Peripheral Pulse Rate [60-100 bpm] 104 bpm *HI* (06/26/15 10:29 AM) Blood Pressure [90-140/60-90 mmHg] 140/85 mmHg (06/26/15 10:29 AM) SpO2 93 % (06/26/15 10:29 AM) Problem List Condition Effective Dates Status [...] days, # 5 tabs, 0 Refill(s), Pharmacy: [facility] #[id number], 1 tabs Oral Daily,x5 days Start Date: 06/22/15 Stop Date: 06/27/15 Status: OrderedProAir RespiClick 90 mcg/inh inhalation powder 2 puffs, Inhalation, q4hr, # 1 inhalers, 4 Refill(s), Pharmacy: [facility] #[id number] Start Date: 06/22/15 Status: Orderedsodium chloride 0.9% nasal spray 1 sprays, Nasal, q2hr, as needed for dry nasal passages, # 45 mL, 0 Refill(s) Start Date: 06/15/15 Status: Orderedvitamin E Oral, Daily, 0 Refill(s) Start Date: 05/05/14 Status: Orderedwarfarin 1 mg oral tablet mg tabs, Oral, Daily, 10mg on M, W, F 8 mg on Sa, Sun, Tu, Thur, 0 Refill(s) Start Date: 01/25/14 Status: OrderedZithromax Z-Mani 250 mg oral tablet 1 packets, Oral, Daily, as directed on package labeling, X 5 days, # 6 tabs, 0 Refill(s), Pharmacy: [facility] #[id number], 1 packets Oral Daily,x5 days, Instr:as directed [...] Visit Note Author: Ector Cabrera DO Date: 06/26/15 Assessment/Plan Acute bacterial bronchitis 1. Clinically she appears to be much improved compared to last week. 2. Complete Zithromax and prednisone. 3. Change breathing treatments to when necessary. 4. Discontinue oxygen use. 5. Follow-up if any new concerns. Ordered: Office Visit Level 3 Est 63132
--- OUTSIDE RECORDS SUMMARY | 2016-12-19 11:34 | External Medical Summary | Summary of Care ---
[...] not documented Goal Planned Encounters Appointment; Provider: Derian Rondon On 01-Apr-2012 10:00 [...]
--- OUTSIDE RECORDS SUMMARY | 2016-12-19 11:34 | External Medical Summary | Referral Summary ---
:1925 Author [facility] Address [address] [place] [address] [place] [address] Care Team Providers Name Role Phone Ector Cabrera Primary Care Physician Encounter [facility] Date(s): 11/29/15 - 11/29/15 [facility] [address] [place] [address] [place] Discharge Diagnosis: Degenerative arthritis of knee, bilateral Discharge Diagnosis: SOB (shortness of breath) on exertion Discharge Diagnosis: Right shoulder pain Discharge Diagnosis: Bradycardia Discharge Diagnosis: DNR (do not resuscitate) discussion Discharge Disposition: 01-Home or Self Care Attending Physician: Ector Cabrera DO Admitting Physician: Ector Cabrera DO Vital Signs Most recent to oldest [Reference Range]: 1 Temperature Tympanic [36.6-38.1 degC] 36 degC *LOW* (11/29/15 2:41 PM) Peripheral Pulse Rate [60-100 bpm] 96 bpm (11/29/15 2:41 PM) Blood Pressure [90-140/60-90 mmHg] 143/78 mmHg *HI* (11/29/15 2:41 PM) Problem List Condition Effective Dates Status [...] Daily, # 90 tabs, 3 Refill(s), Pharmacy: [facility], 1 tabs Oral Daily,x90 days [...] BID, 0 Refill(s) Start Date: 01/25/14 Status: OrderedProAir RespiClick 90 mcg/inh inhalation powder 2 puffs, Inhalation, q4hr, # 1 inhalers, 4 Refill(s), Pharmacy: [facility] #[id number] Start Date: 06/22/15 Status: Orderedsodium chloride 0.9% [...] Extracted from: Title: Office Visit Note Author: CarmenEctor byers Date: 11/29/15 Assessment/Plan 1.Degenerative arthritis of knee, bilateral 1. Since she did not get much benefit from previous knee injections, I do not think reinjection would be beneficial. 2. Recommended Tylenol at thousand milligrams every 8 hours. 3. Follow-up for any new concerns. Ordered: Office Visit Level 4 Est 65547 2.Right shoulder pain 1. Recommendations as above. 2. She was offered shoulder subacromial injection which she declined. 3. If she has worsening presentation then we may send her to physical therapy versus orthopedic shoulder specialist for evaluation. Ordered: Office Visit Level 4 Est 14750 3.Bradycardia 1. The bradycardia was likely secondary to the Coreg. I agree with stopping this medication. She is to follow-up with power electronics research engineer for further cardiac evaluation and recommendation. Ordered: Office Visit Level 4 Est 74892 4.DNR (do not resuscitate) discussion 1. She re-signed her DO NOT RESUSCITATE and DURABLE POWER OF SALES RESEARCH ANALYST putting her daughter who was present as the person in charge to make medical decisions for her. Ordered: Office Visit Level 4 Est 83225 5.SOB (shortness of breath) on exertion 1. This is likely secondary to poor conditioning. Recommended that she discuss this with the power electronics research engineer in more detail in the next week. Ordered: Office Visit Level 4 Est 51235 Need for influenza vaccination 1. Flu vaccination given today. Ordered: Office Visit Level 4 Est 10030
--- OUTSIDE RECORDS SUMMARY | 2016-12-19 11:34 | External Medical Summary | Summary of Care ---
:1925 Author Name Sathish Lujan M.D. Address Unavailable Unavailable , Care Team Providers Name Role Phone Rosey Hatch, Nalini Gonzales Unavailable Unavailable Val Olson, Mohamud Unavailable Unavailable Le Hatch, Sathish Unavailable Unavailable Nela Hatch, Derian Unavailable Unavailable [...] 0 Rosey Hatch, Christian Gayle Start Active Test Strips accucheck compact strips [...] 2 TABLET DAILY. Quantity: 180 Refills: 3 Marcusestrella HathcDerian Start 10-May-2010 Active Levoxyl 88 MCG Oral Tablet TAKE 1 TABLET DAILY. Quantity: 90 Refills: 4 Rosey Hatch, Christian Gayle Start 10-May-2010 Active Lisinopril 2.5 MG Oral Tablet TAKE 1 TABLET Daily in the evening Refills: 0 Mohamud Neal D.O. Start Active Furosemide 80 MG Oral Tablet [...]
--- OUTSIDE RECORDS SUMMARY | 2016-12-19 11:34 | External Medical Summary | Summary of Care ---
[...] DAILY. Refills: 0 Christian Currie M.D. Started ActiveWarfarin Sodium 1 MG Oral Tablet TAKE [...] Refills: 3 Christian Currie M.D. Started 18-Feb-2013 ActiveAtenolol 25 MG Oral Tablet TAKE 2 IN THE AM AND 1 IN THE PM Quantity: 270 Refills: 30 Marestrella Derian Hatch Started 16-Mar-2012 Active Allergies and Adverse Reactions Name Dates [...]
[2016-12-19 11:52] VITALS: BMI 29.6
[2016-12-19] MEDS ORDERED: DiltiaZEM 25 MG/5 ML INJECTION IVP ONE (12:02)
[2016-12-19] MEDS ORDERED: DiltiaZEM Drip 125 MG in NS 125 ML IV SCH (12:30)
--- NOTE | 2016-12-19 12:36 | XRay Report ---
Indication: aflutter PROCEDURE: XR chest 1V: Encounter: Initial Comparison: June 12, 2015 Findings: The lungs are stable in appearance without new focal airspace consolidation. There is no pleural effusion or pneumothorax. The heart size, pulmonary vascularity and mediastinal contours are unchanged. IMPRESSION: Stable appearance of the chest without acute cardiopulmonary disease. .
[2016-12-19] MEDS ORDERED: ACETAMINOPHEN 325 MG TABLET PO PRN (15:03)
--- NOTE | 2016-12-19 15:53 | DC Cardioversion ---
DATE OF PROCEDURE December 19, 2016 The patient is a pleasant 89-year-old lady who was seen in the office who was in atrial flutter with rapid ventricular rate on chronic anticoagulation and was admitted and referred for DC cardioversion. Informed consent was obtained after explaining the procedure and the potential risks to the patient who agreed to proceed with the procedure. PROCEDURE Cardioversion. Conscious sedation was performed using Versed and fentanyl. Anterior-posterior Zoll pads were applied. 360 joules of energy were delivered in synchronized manner and patient converted from atrial flutter into junctional rhythm with a slow heartbeat in the 30s. She tolerated the procedure well with no complications. IMPRESSION DC cardioversion of atrial flutter into slow junctional rhythm. Will continue anticoagulation and wait for the Cardizem to wear off and follow her rate and rhythm. 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 PARKER
[2016-12-19] MEDS: ATROPINE 1 MG/10 ML SYRINGE IVP PRN ×2 (15:57→22:24)
[2016-12-19] MEDS ORDERED: PHYTONADIONE 5 MG/2.5 ML ORAL LIQUID PO ONE (16:10)
[2016-12-19] MEDS: FUROSEMIDE 40 MG PO SCH ×2 (18:06→21:27)
[2016-12-19] MEDS: FLUTICASONE 50 MCG EA NOSTRIL SCH (20:54)
[2016-12-19] MEDS ORDERED: --POM--FUROSEMIDE 40 MG TABLET PO SCH (21:00)
[2016-12-20] MEDS: --POM--LEVOTHYROXINE 88 MCG TABLET PO SCH (07:18)
[2016-12-20] MEDS ORDERED: PHYTONADIONE 5 MG/2.5 ML ORAL LIQUID PO ONE (08:35)
[2016-12-20] MEDS: FLUTICASONE 50 MCG EA NOSTRIL SCH ×2 (08:43→20:32)
[2016-12-20] MEDS: SALINE FLUSH 10ml SYRINGE IV PRN (08:46)
[2016-12-20] MEDS ORDERED: FentaNYL 100 MCG/2 ML INJECTION ONE (16:06)
[2016-12-20] MEDS ORDERED: CEFAZOLIN 1 G INJECTION ONE (16:06)
[2016-12-20] MEDS ORDERED: STERILE WATER FOR INJ 20ML 20 ML ONE (16:06)
[2016-12-20] MEDS ORDERED: MIDAZOLAM 2mg/2ml INJECTION ONE (16:06)
[2016-12-20] MEDS ORDERED: BACITRACIN 50,000 UNIT INJECTION ONE (16:07)
[2016-12-20] MEDS ORDERED: SALINE FLUSH 10ml SYRINGE ONE (16:07)
[2016-12-20] MEDS ORDERED: LIDOCAINE 1% (10mg/ml) 30ml SDV INJ ONE (16:07)
[2016-12-20] MEDS ORDERED: AMIODARONE 150mg/3ml INJECTION IV ONE (18:16)
[2016-12-20] MEDS ORDERED: ALBUTEROL/IPRATROPIUM 2.5mg-0.5mg/3ml NEB AEROSOL PRN (18:25)
[2016-12-20] MEDS ORDERED: AMIODARONE 150 MG in NS 100 ML IV ONE (18:30)
[2016-12-20] MEDS ORDERED: FUROSEMIDE 40 MG PO SCH (18:30)
[2016-12-20] MEDS ORDERED: FUROSEMIDE 40 MG/4 ML INJECTION IVP ONE (18:46)
[2016-12-20] MEDS: AMIODARONE 200 MG TABLET PO SCH (20:31)
[2016-12-20] MEDS ORDERED: WARFARIN 5 MG TABLET PO SCH (20:45)
[2016-12-21] MEDS ORDERED: CEFAZOLIN 1 G in NS 100 ML IV SCH (00:01)
[2016-12-21] MEDS: SALINE FLUSH 10ml SYRINGE IV PRN ×2 (00:12→20:16)
[2016-12-21] MEDS: LEVOTHYROXINE 88 MCG TABLET PO SCH (07:45)
[2016-12-21] MEDS: --POM--LEVOTHYROXINE 88 MCG TABLET PO SCH (07:57)
[2016-12-21] MEDS: MINOCYCLINE 100 MG CAPSULE PO SCH ×2 (09:31→21:24)
[2016-12-21] MEDS: FUROSEMIDE 40 MG TABLET PO SCH ×2 (09:32→11:36)
[2016-12-21] MEDS: AMIODARONE 200 MG TABLET PO SCH ×2 (09:32→21:24)
[2016-12-21] MEDS: FLUTICASONE NASAL SPRAY 50mcg EA NOSTRIL SCH ×2 (09:32→21:26)
[2016-12-21] MEDS ORDERED: WARFARIN 5 MG TABLET PO ONE (10:28)
[2016-12-21] MEDS ORDERED: WARFARIN 4 MG TABLET PO SCH (12:00)
--- NOTE | 2016-12-21 12:38 | Cardiology Progress Note ---
<Zo Krueger - Last Filed: 12/22/16 13:51> Subjective Principal diagnosis: Aflutter Interval history: Melyssa is seen in follow up for atrial flutter, junctional bradycardia and s/p PPM. She was admitted directly for the office in [facility] and underwent DCCV. Following conversion she was noted to be in junctional bradycardia with a rate of 20- low 40s. 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 Following PPM she became hypoxic requiring O2 at 15L/NC, likely due to fluid volume. IV Lasix was administered and she is now on 3L/NC, in no distress. She denies chest pain, incision is clean dry and intact with no s/sx of infection. Exam Vital signs: Temperature 97.8 F 12/21/16 11:00 Pulse Rate 60 12/21/16 12:00 Respiratory Rate 16 12/21/16 11:00 Blood Pressure 160/74 H 12/21/16 11:00 Pulse Oximetry 91 12/21/16 11:00 - Constitutional no acute distress, well nourished, cooperative - Routine HEENT Exam Head: Present: normocephalic ENT: Present: mucous membranes moist - Routine Neck Exam Absent: JVD, carotid bruit - Routine Chest/Breast/Axilla Exam Chest wall: Present: tenderness, pacemaker - Routine Respiratory Exam Present: diminished air movement. Absent: CTA bilaterally, rales, wheezes - Routine Cardiovascular Exam Present: no murmur - Routine Abdominal Exam Present: soft, normoactive bowel sounds - Routine Extremities Exam Present: edema - Routine Skin Exam Present: intact, dry, warm - Routine Neurological Exam Present: alert, oriented X3 - Routine Psychiatric Exam Present: normal affect, normal thought process - Additional findings Additional findings: Laboratory Results - last 48 hr 12/19/16 12/19/16 12/20/16 12:25 12:27 04:53 WBC RBC Hgb Hct MCV MCH MCHC RDW Std Deviation Plt Count MPV Immature Gran % (Auto) Neut % (Auto) Lymph % (Auto) Traill % (Auto) Eos % (Auto) Baso % (Auto) Neut # (Auto) Lymph # (Auto) Traill # (Auto) Eos # (Auto) Baso # (Auto) Abs Immat Gran (auto) INR 3.47 H 2.20 H Turbidity Sodium Potassium Chloride Carbon Dioxide Anion Gap BUN Creatinine GFR Calculation BUN/Creatinine Ratio Glucose Calculated Osmolality Calcium Magnesium Icterus Index Troponin I 0.051 B-Natriuretic Peptide TSH 3.37 Specimen Hemolysis 12/20/16 12/20/16 12/20/16 04:53 04:53 12:29 WBC 5.2 RBC 3.99 L Hgb 12.7 D Hct 39.6 D MCV 99.2 MCH 31.8 MCHC 32.1 RDW Std Deviation 57.4 H Plt Count 138 MPV 11.2 Immature Gran % (Auto) Neut % (Auto) Lymph % (Auto) Traill % (Auto) Eos % (Auto) Baso % (Auto) Neut # (Auto) Lymph # (Auto) Traill # (Auto) Eos # (Auto) Baso # (Auto) Abs Immat Gran (auto) INR 1.57 H Turbidity < 20 Sodium 143 Potassium 4.3 Chloride 107 Carbon Dioxide 28 Anion Gap 8 BUN 37.0 H Creatinine 1.5 H D GFR Calculation 33 BUN/Creatinine Ratio 25 Glucose 124 H Calculated Osmolality 285 H Calcium 8.9 Magnesium 2.4 H Icterus Index < 2 Troponin I B-Natriuretic Peptide TSH Specimen Hemolysis < 15 12/20/16 12/21/16 12/21/16 21:03 03:51 03:51 WBC 6.9 RBC 4.15 Hgb 13.0 Hct 41.5 MCV 100.0 MCH 31.3 MCHC 31.3 RDW Std Deviation 58.0 H Plt Count 133 MPV 11.4 Immature Gran % (Auto) 0.4 Neut % (Auto) 72.7 H Lymph % (Auto) 14.6 L Traill % (Auto) 11.8 H Eos % (Auto) 0.4 Baso % (Auto) 0.1 Neut # (Auto) 5.0 Lymph # (Auto) 1.0 Traill # (Auto) 0.8 Eos # (Auto) 0.0 Baso # (Auto) 0.0 Abs Immat Gran (auto) 0.03 INR Turbidity < 20 Sodium 144 Potassium 3.8 Chloride 105 Carbon Dioxide 29 Anion Gap 10 BUN 30.0 H Creatinine 1.1 D GFR Calculation 47 BUN/Creatinine Ratio 27 H Glucose 116 H Calculated Osmolality 284 H Calcium 8.6 Magnesium Icterus Index < 2 Troponin I B-Natriuretic Peptide 1510 H TSH Specimen Hemolysis < 15 12/21/16 03:51 WBC RBC Hgb Hct MCV MCH MCHC RDW Std Deviation Plt Count MPV Immature Gran % (Auto) Neut % (Auto) Lymph % (Auto) Traill % (Auto) Eos % (Auto) Baso % (Auto) Neut # (Auto) Lymph # (Auto) Traill # (Auto) Eos # (Auto) Baso # (Auto) Abs Immat Gran (auto) INR 1.27 H Turbidity Sodium Potassium Chloride Carbon Dioxide Anion Gap BUN Creatinine GFR Calculation BUN/Creatinine Ratio Glucose Calculated Osmolality Calcium Magnesium Icterus Index Troponin I B-Natriuretic Peptide TSH Specimen Hemolysis Acetaminophen (Tylenol) 650 mg PO Q6H PRN PRN Reason: P Albuterol/Ipratropium (Duoneb) 3 ml AEROSOL Q4H PRN Last Admin: 12/20/16 19:27 Dose: 3 ml Amiodarone HCl (Pacerone) 400 mg PO BID [facility] Stop: 12/26/16 21:00 Last Admin: 12/21/16 09:32 Dose: 400 mg Amiodarone HCl (Pacerone) 200 mg PO DAILY [facility] Atropine Sulfate (Atropine Inj) 0.5 mg IVP PRN PRN Last Admin: 12/19/16 22:24 Dose: 0.5 mg Enoxaparin Sodium (Lovenox) 100 mg SQ BID [facility] Fluticasone Propionate (Flonase) 1 spray EA NOSTRIL BID [facility] Last Admin: 12/21/16 09:32 Dose: 1 spray Furosemide (Lasix) 80 mg PO 0800,1200 [facility] Last Admin: 12/21/16 11:36 Dose: 80 mg Levothyroxine Sodium (Synthroid) 88 mcg PO ACB [facility] Last Admin: 12/21/16 07:45 Dose: 88 mcg Minocycline HCl (Minocin) 100 mg PO BID [facility] Last Admin: 12/21/16 09:31 Dose: 100 mg Sodium Chloride (Iv Flush) 10 ml IV PRN PRN PRN Reason: Flushing Last Admin: 12/21/16 00:12 Dose: 10 ml Warfarin Sodium (Coumadin) 10 mg PO We@1200 [facility] Warfarin Sodium (Coumadin) 5 mg PO Fr@1200 [facility] Date of Exam: 12/19/16 Ordering Provider: Zo Krueger APRN Type of Exam(s): XR chest 1V Reason for Exam(s): aflutter Indication: aflutter PROCEDURE: XR chest 1V: Encounter: Initial Comparison: June 12, 2015 Findings: The lungs are stable in appearance without new focal airspace consolidation. There is no pleural effusion or pneumothorax. The heart size, pulmonary vascularity and mediastinal contours are unchanged. IMPRESSION: Stable appearance of the chest without acute cardiopulmonary disease. Assessment and Plan - Assessment and Plan (1) Pulmonary edema Current visit: Yes Status: Acute Continue diuresis with home dose Lasix 80mg po BID today - Repeat BNP, BMP MAG in am (2) Junctional bradycardia Current visit: Yes Status: Acute S/P [employer] PPM (3) Atrial flutter Current visit: Yes Status: Acute DCCV out of Flutter, into junctional bradycardia (4) Paroxysmal atrial fibrillation Current visit: Yes Status: Chronic Started on Amiodarone 150mg IV bolus, followed by Amiodarone 400mg po BID X 7days then 200mg daily. Continue coumadin, INR subtherapeutic today, administer Lovenox, recheck in am (5) Dilated cardiomyopathy Current visit: Yes Status: Chronic Continue Coreg (6) Essential (primary) hypertension Current visit: Yes Status: Chronic Continue Lisinopril (7) Chronic anticoagulation Current visit: Yes Status: Chronic Hospital Course Summary Disclaimer: The visit summary below is not to be considered part of the above Progress Note. <Tye Flower - Last Filed: 12/24/16 08:31> Exam Vital signs: Temperature 97.9 F 12/24/16 07:53 Pulse Rate 60 12/24/16 08:00 Respiratory Rate 22 12/24/16 07:53 Blood Pressure 169/74 H 12/24/16 07:53 Pulse Oximetry 91 12/24/16 07:53 Assessment and Plan - Assessment and Plan (1) Atrial flutter Current visit: Yes Status: Acute (2) Paroxysmal atrial fibrillation Current visit: Yes Status: Chronic (3) Dilated cardiomyopathy Current visit: Yes Status: Chronic (4) Junctional bradycardia Current visit: Yes Status: Acute (5) Essential (primary) hypertension Current visit: Yes Status: Chronic (6) Chronic anticoagulation Current visit: Yes Status: Chronic (7) Pulmonary edema Current visit: Yes Status: Acute (8) Presence of permanent cardiac pacemaker Current visit: Yes Status: Acute (9) Hypoxia Current visit: Yes Status: Acute - Attestation Attestation Narrative: 12/24/16 08:31 Recommendation After examining the patient I agree with the above assessment. I am involved in the formulation of the patient's plan of care. Hospital Course Summary Disclaimer: The visit summary below is not to be considered part of the above Progress Note. Addendum entered and electronically signed by Zo Krueger APRN 12/22/16 14: 37: I examined the patient independently, review the chart and discussed finding with Dr. Flower. He agrees with the plan of care.
[2016-12-21] MEDS: ENOXAPARIN 100 MG/ML INJECTION SQ SCH (21:24)
[2016-12-22] MEDS: LEVOTHYROXINE 88 MCG TABLET PO SCH (05:44)
[2016-12-22] MEDS: SALINE FLUSH 10ml SYRINGE IV PRN ×2 (05:45→19:55)
[2016-12-22] MEDS: FUROSEMIDE 40 MG TABLET PO SCH ×2 (08:44→11:38)
[2016-12-22] MEDS: AMIODARONE 200 MG TABLET PO SCH ×2 (08:44→20:00)
[2016-12-22] MEDS: ENOXAPARIN 100 MG/ML INJECTION SQ SCH ×2 (08:45→20:05)
[2016-12-22] MEDS: FLUTICASONE NASAL SPRAY 50mcg EA NOSTRIL SCH ×2 (08:45→20:06)
[2016-12-22] MEDS: MINOCYCLINE 100 MG CAPSULE PO SCH ×2 (08:45→20:00)
--- NOTE | 2016-12-22 10:45 | XRay Report ---
Indication: hypoxia PROCEDURE: XR chest 1V: Encounter: Initial Comparison: December 19, 2016 Findings: New groundglass type opacities in both upper lobes. Small bilateral pleural effusions. No pneumothorax. New left cardiac pacemaker with right atrial and right ventricular leads is new. Heart size and mediastinal contours are stable. Impression: New moderate pulmonary edema. .
--- NOTE | 2016-12-22 10:58 | XRay Report ---
INDICATION: PPM PROCEDURE: CHEST 2-VIEWS UPRIGHT (PA & LAT) Encounter: Initial COMPARISON: December 20, 2016 FINDINGS: Left dual lead cardiac pacemaker remains in place with right atrial and right ventricular leads. No evidence of lead fracture. No pneumothorax. Small pleural effusions remain. Upper lung edema has improved. Mild residual pulmonary vascular congestion. Heart size and mediastinal contours are stable. Impression: Stable appearance of the left pacemaker with mild residual congestive failure. .
[2016-12-22] MEDS ORDERED: WARFARIN 7.5 MG TABLET PO ONE (13:49)
--- NOTE | 2016-12-22 13:59 | Cardiology Progress Note ---
Subjective Principal diagnosis: Aflutter Interval history: Melyssa is seen in follow up for atrial flutter, junctional bradycardia and s/p PPM. She is seen in her room where she remains on O2 at 2L/NC, in no distress. Exercise oximetry has been ordered to asses for home O2 needs. She denies chest pain, incision is clean dry and intact with no s/sx of infection. Exam Vital signs: Temperature 98.6 F 12/22/16 07:33 Pulse Rate 70 12/22/16 13:28 Respiratory Rate 40 H 12/22/16 11:41 Blood Pressure 141/65 H 12/22/16 11:41 Pulse Oximetry 90 12/22/16 13:28 - Constitutional no acute distress, well nourished, cooperative - Routine HEENT Exam Head: Present: normocephalic ENT: Present: mucous membranes moist - Routine Chest/Breast/Axilla Exam Chest wall: Present: tenderness - Routine Respiratory Exam Present: CTA bilaterally, diminished air movement - Routine Cardiovascular Exam Present: RRR (paced), no murmur. Absent: JVD - Routine Abdominal Exam Present: soft, normoactive bowel sounds - Routine Extremities Exam Present: edema - Routine Skin Exam Present: intact, dry, warm - Routine Neurological Exam Present: alert, oriented X3 - Routine Psychiatric Exam Present: normal affect, normal thought process - Additional findings Additional findings: Abnormal Lab Results 12/22/16 12/22/16 12/22/16 04:40 04:40 04:40 WBC 5.9 RBC 4.11 Hgb 12.9 Hct 41.0 MCV 99.8 MCH 31.4 MCHC 31.5 RDW Std Deviation 57.1 H Plt Count 130 MPV 11.0 INR 1.33 H Turbidity < 20 Sodium 144 Potassium 3.4 L Chloride 105 Carbon Dioxide 31 H Anion Gap 8 BUN 27.0 H Creatinine 1.1 GFR Calculation 47 BUN/Creatinine Ratio 25 Glucose 108 Calculated Osmolality 283 H Calcium 8.5 Magnesium 2.3 Icterus Index < 2 B-Natriuretic Peptide 1710 H Specimen Hemolysis < 15 Acetaminophen (Tylenol) 650 mg PO Q6H PRN PRN Reason: P Albuterol/Ipratropium (Duoneb) 3 ml AEROSOL Q4H PRN Last Admin: 12/20/16 19:27 Dose: 3 ml Amiodarone HCl (Pacerone) 400 mg PO BID [facility] Stop: 12/26/16 21:00 Last Admin: 12/22/16 08:44 Dose: 400 mg Amiodarone HCl (Pacerone) 200 mg PO DAILY [facility] Atropine Sulfate (Atropine Inj) 0.5 mg IVP PRN PRN Last Admin: 12/19/16 22:24 Dose: 0.5 mg Enoxaparin Sodium (Lovenox) 100 mg SQ BID [facility] Last Admin: 12/22/16 08:45 Dose: 100 mg Fluticasone Propionate (Flonase) 1 spray EA NOSTRIL BID [facility] Last Admin: 12/22/16 08:45 Dose: 1 spray Furosemide (Lasix) 80 mg PO 0800,1200 [facility] Last Admin: 12/22/16 11:38 Dose: 80 mg Levothyroxine Sodium (Synthroid) 88 mcg PO ACB [facility] Last Admin: 12/22/16 05:44 Dose: 88 mcg Minocycline HCl (Minocin) 100 mg PO BID [facility] Last Admin: 12/22/16 08:45 Dose: 100 mg Sodium Chloride (Iv Flush) 10 ml IV PRN PRN PRN Reason: Flushing Last Admin: 12/22/16 05:45 Dose: 10 ml Warfarin Sodium (Coumadin) 10 mg PO We@1200 [facility] Warfarin Sodium (Coumadin) 5 mg PO Fr@1200 [facility] Assessment and Plan - Assessment and Plan (1) Pulmonary edema Current visit: Yes Status: Acute Improved. Exercise oximetry has been ordered to asses for home O2 needs. - repeat chest x-ray in am. (2) Junctional bradycardia Current visit: Yes Status: Acute (3) Atrial flutter Current visit: Yes Status: Acute (4) Paroxysmal atrial fibrillation Current visit: Yes Status: Chronic INR 1.33 today, administered Coumadin 7.5mg, repeat INR in am. Remains on Lovenox 100mg BID for anticoagulation (5) Dilated cardiomyopathy Current visit: Yes Status: Chronic (6) Essential (primary) hypertension Current visit: Yes Status: Chronic (7) Chronic anticoagulation Current visit: Yes Status: Chronic Hospital Course Summary Disclaimer: The visit summary below is not to be considered part of the above Progress Note. Hospital Course: I examined the patient independently, review the chart and discussed finding with Dr. Flower. He agrees with the plan of care.
[2016-12-22] MEDS ORDERED: FUROSEMIDE 20 MG/2 ML INJECTION IVP ONE (14:05)
[2016-12-23] MEDS: SALINE FLUSH 10ml SYRINGE IV PRN ×2 (04:03→21:07)
[2016-12-23] MEDS: LEVOTHYROXINE 88 MCG TABLET PO SCH (06:45)
[2016-12-23] MEDS: AMIODARONE 200 MG TABLET PO SCH ×2 (08:45→20:55)
[2016-12-23] MEDS: FLUTICASONE NASAL SPRAY 50mcg EA NOSTRIL SCH ×2 (08:45→20:58)
[2016-12-23] MEDS: FUROSEMIDE 40 MG TABLET PO SCH ×2 (08:45→12:07)
[2016-12-23] MEDS: ENOXAPARIN 100 MG/ML INJECTION SQ SCH (08:45)
[2016-12-23] MEDS: MINOCYCLINE 100 MG CAPSULE PO SCH ×2 (08:45→20:55)
--- NOTE | 2016-12-23 14:21 | Cardiology Progress Note ---
<Zo Krueger - Last Filed: 12/23/16 14:39> Subjective Principal diagnosis: Aflutter Interval history: Melyssa is seen in follow up for atrial flutter, junctional bradycardia and s/p PPM with Dr. Crisostomo this morning. She remains on O2 at 2L/NC, in no distress. Her incision was noted to have a large hematoma last evening by nursing staff. Now pressure dressing is removed and RN reports it looks better than earlier. Exercise oximetry has shown need for home OP2 on discharge. Exam Vital signs: Temperature 98.2 F 12/23/16 11:50 Pulse Rate 60 12/23/16 11:52 Respiratory Rate 20 12/23/16 11:50 Blood Pressure 144/65 H 12/23/16 11:50 Pulse Oximetry 91 12/23/16 11:50 - Constitutional no acute distress, well nourished, cooperative - Routine HEENT Exam Head: Present: normocephalic ENT: Present: mucous membranes moist - Routine Neck Exam Absent: JVD, carotid bruit - Routine Chest/Breast/Axilla Exam Chest wall: Present: pacemaker. Absent: tenderness - Routine Respiratory Exam Present: CTA bilaterally, diminished air movement - Routine Cardiovascular Exam Present: RRR (paced), no murmur. Absent: JVD - Routine Abdominal Exam Present: soft, normoactive bowel sounds - Routine Extremities Exam Present: edema - Routine Skin Exam Present: intact, dry, warm - Routine Neurological Exam Present: alert, oriented X3 - Routine Psychiatric Exam Present: normal affect, normal thought process - Additional findings Additional findings: Abnormal Lab Results 12/23/16 12/23/16 12/23/16 04:08 04:08 04:08 WBC 5.8 RBC 4.03 Hgb 12.6 Hct 40.2 MCV 99.8 MCH 31.3 MCHC 31.3 RDW Std Deviation 56.4 H Plt Count 137 MPV 11.2 INR 1.44 H Turbidity < 20 Sodium 144 Potassium 3.6 Chloride 104 Carbon Dioxide 33 H Anion Gap 7 BUN 26.0 H Creatinine 1.1 GFR Calculation 47 BUN/Creatinine Ratio 24 Glucose 107 Calculated Osmolality 282 H Calcium 8.5 Magnesium 2.3 Icterus Index < 2 Specimen Hemolysis < 15 Acetaminophen (Tylenol) 650 mg PO Q6H PRN PRN Reason: P Albuterol/Ipratropium (Duoneb) 3 ml AEROSOL Q4H PRN Last Admin: 12/20/16 19:27 Dose: 3 ml Amiodarone HCl (Pacerone) 400 mg PO BID [facility] Stop: 12/26/16 21:00 Last Admin: 12/23/16 08:45 Dose: 400 mg Amiodarone HCl (Pacerone) 200 mg PO DAILY [facility] Atropine Sulfate (Atropine Inj) 0.5 mg IVP PRN PRN Last Admin: 12/19/16 22:24 Dose: 0.5 mg Fluticasone Propionate (Flonase) 1 spray EA NOSTRIL BID [facility] Last Admin: 12/23/16 08:45 Dose: 1 spray Furosemide (Lasix) 80 mg PO 0800,1200 [facility] Last Admin: 12/23/16 12:07 Dose: 80 mg Levothyroxine Sodium (Synthroid) 88 mcg PO ACB [facility] Last Admin: 12/23/16 06:45 Dose: 88 mcg Minocycline HCl (Minocin) 100 mg PO BID [facility] Last Admin: 12/23/16 08:45 Dose: 100 mg Sodium Chloride (Iv Flush) 10 ml IV PRN PRN PRN Reason: Flushing Last Admin: 12/23/16 04:03 Dose: 10 ml Warfarin Sodium (Coumadin) 10 mg PO We@1200 [facility] Warfarin Sodium (Coumadin) 5 mg PO Fr@1200 [facility] Assessment and Plan - Assessment and Plan (1) Presence of permanent cardiac pacemaker Current visit: Yes Status: Acute Incision with hematoma. Being monitored by nursing to ensure no growth - Hold Lovenox and Coumadin today (2) Pulmonary edema Current visit: Yes Status: Acute (3) Junctional bradycardia Current visit: Yes Status: Acute (4) Atrial flutter Current visit: Yes Status: Acute (5) Paroxysmal atrial fibrillation Current visit: Yes Status: Chronic (6) Dilated cardiomyopathy Current visit: Yes Status: Chronic (7) Essential (primary) hypertension Current visit: Yes Status: Chronic (8) Chronic anticoagulation Current visit: Yes Status: Chronic (9) Hypoxia Current visit: Yes Status: Acute Remains on 2L/NC. Exercise oximetry shows need for home O2 Hospital Course Summary Disclaimer: The visit summary below is not to be considered part of the above Progress Note. Hospital Course: I examined the patient independently, review the chart and discussed finding with Dr. Flower. He agrees with the plan of care. <Van Crisostomourav - Last Filed: 12/23/16 20:06> Exam Vital signs: Temperature 98 F 12/23/16 19:49 Pulse Rate 60 12/23/16 19:49 Respiratory Rate 16 12/23/16 19:49 Blood Pressure 124/77 12/23/16 19:49 Pulse Oximetry 93 12/23/16 19:49 Assessment and Plan - Assessment and Plan (1) Atrial flutter Current visit: Yes Status: Acute (2) Paroxysmal atrial fibrillation Current visit: Yes Status: Chronic (3) Dilated cardiomyopathy Current visit: Yes Status: Chronic (4) Junctional bradycardia Current visit: Yes Status: Acute (5) Essential (primary) hypertension Current visit: Yes Status: Chronic (6) Chronic anticoagulation Current visit: Yes Status: Chronic (7) Pulmonary edema Current visit: Yes Status: Acute (8) Presence of permanent cardiac pacemaker Current visit: Yes Status: Acute (9) Hypoxia Current visit: Yes Status: Acute - Attestation Attestation Narrative: 12/23/16 20:04 Ms Loop, developed pocket hematoma. She was started on therapeutic Lovenox, will hold lovenox and will hold warfarin for today. Per nursing staff hematoma is slightly better. Will continue to monitor, should it become tense or worsen, may need revision. Hospital Course Summary Disclaimer: The visit summary below is not to be considered part of the above Progress Note.
--- NOTE | 2016-12-23 17:16 | XRay Report ---
LOCATION OF DICTATION: [place] EXAM: XR chest 2V HISTORY: o2 needs COMPARISON: No prior studies available for comparison. FINDINGS: Mild to moderate cardiomegaly. Left-sided dual-lead pacemaker in place with intact leads overlying the right atrium and right ventricle. The central pulmonary vasculature is mildly prominent though improved when compared with two days earlier. There are small residual pleural effusions again noted. Stable elevation the right hemidiaphragm. No consolidating opacities or pneumothorax. Osseous structures are unchanged. IMPRESSION: Mild to moderate cardiomegaly with interval improvement in pulmonary vascular congestion with minimal residual small bilateral effusions. .
[2016-12-24] MEDS: LEVOTHYROXINE 88 MCG TABLET PO SCH (06:15)
[2016-12-24] MEDS: SALINE FLUSH 10ml SYRINGE IV PRN (06:16)
[2016-12-24] MEDS: AMIODARONE 200 MG TABLET PO SCH ×2 (08:05→20:31)
[2016-12-24] MEDS: MINOCYCLINE 100 MG CAPSULE PO SCH ×2 (08:05→20:31)
[2016-12-24] MEDS: FUROSEMIDE 40 MG TABLET PO SCH ×2 (08:05→11:38)
[2016-12-24] MEDS: FLUTICASONE NASAL SPRAY 50mcg EA NOSTRIL SCH ×2 (08:05→20:32)
--- NOTE | 2016-12-24 15:17 | Cardiology Progress Note ---
<Zo Krueger - Last Filed: 12/25/16 09:41> Subjective Principal diagnosis: Aflutter Interval history: Melyssa is seen in follow up for atrial flutter, junctional bradycardia and s/p PPM. She remains on O2 at 1L/NC, in no distress. She developed pocket hematoma which has not grown in size or firmness. will hold Coumadin today and watch closely. Exam Vital signs: Temperature 97.9 F 12/24/16 07:53 Pulse Rate 60 12/24/16 11:41 Respiratory Rate 16 12/24/16 11:41 Blood Pressure 167/81 H 12/24/16 11:41 Pulse Oximetry 92 12/24/16 12:28 - Constitutional no acute distress, well nourished, cooperative - Routine HEENT Exam Head: Present: normocephalic ENT: Present: mucous membranes moist - Routine Chest/Breast/Axilla Exam Chest wall: Present: tenderness, pacemaker - Routine Respiratory Exam Present: CTA bilaterally, diminished air movement. Absent: rales, crackles - Routine Cardiovascular Exam Present: RRR (paced), no murmur - Routine Abdominal Exam Present: soft, normoactive bowel sounds - Routine Extremities Exam Present: edema - Routine Skin Exam Present: intact, dry, warm, ecchymosis (left chest and arm) - Routine Neurological Exam Present: alert, oriented X3 - Routine Psychiatric Exam Present: normal affect, normal thought process - Additional findings Additional findings: Laboratory Results - last 24 hr 12/24/16 12/24/16 12/24/16 07:35 07:35 09:39 WBC 5.1 RBC 3.98 L Hgb 12.8 Hct 39.5 MCV 99.2 MCH 32.2 MCHC 32.4 RDW Std Deviation 55.8 H Plt Count 137 MPV 11.0 INR 1.49 H Turbidity < 20 Sodium 143 Potassium 3.6 Chloride 105 Carbon Dioxide 31 H Anion Gap 7 BUN 25.0 H Creatinine 0.9 D GFR Calculation 59 BUN/Creatinine Ratio 28 H Glucose 103 Calculated Osmolality 279 Calcium 8.6 Icterus Index < 2 Specimen Hemolysis < 15 Acetaminophen (Tylenol) 650 mg PO Q6H PRN PRN Reason: P Albuterol/Ipratropium (Duoneb) 3 ml AEROSOL Q4H PRN Last Admin: 12/20/16 19:27 Dose: 3 ml Amiodarone HCl (Pacerone) 400 mg PO BID [facility] Stop: 12/26/16 21:00 Last Admin: 12/24/16 08:05 Dose: 400 mg Amiodarone HCl (Pacerone) 200 mg PO DAILY [facility] Atropine Sulfate (Atropine Inj) 0.5 mg IVP PRN PRN Last Admin: 12/19/16 22:24 Dose: 0.5 mg Fluticasone Propionate (Flonase) 1 spray EA NOSTRIL BID [facility] Last Admin: 12/24/16 08:05 Dose: Not Given Furosemide (Lasix) 80 mg PO 0800,1200 [facility] Last Admin: 12/24/16 11:38 Dose: 80 mg Levothyroxine Sodium (Synthroid) 88 mcg PO ACB [facility] Last Admin: 12/24/16 06:15 Dose: 88 mcg Minocycline HCl (Minocin) 100 mg PO BID [facility] Last Admin: 12/24/16 08:05 Dose: 100 mg Sodium Chloride (Iv Flush) 10 ml IV PRN PRN PRN Reason: Flushing Last Admin: 12/24/16 06:16 Dose: 10 ml Warfarin Sodium (Coumadin) 10 mg PO We@1200 YANIRA Warfarin Sodium (Coumadin) 5 mg PO Fr@1200 [facility] Assessment and Plan - Assessment and Plan (1) Atrial flutter Status: Acute (2) Paroxysmal atrial fibrillation Status: Chronic (3) Dilated cardiomyopathy Status: Chronic (4) Junctional bradycardia Status: Acute (5) Essential (primary) hypertension Status: Chronic (6) Chronic anticoagulation Status: Chronic (7) Pulmonary edema Status: Acute (8) Presence of permanent cardiac pacemaker Status: Acute Pocket hematoma. Hold Coumadin, watch closely (9) Hypoxia Status: Acute Improving, now on 1L/NC. Exercise oximetry tomorrow to evaluate home O2 needs. Hospital Course Summary Disclaimer: The visit summary below is not to be considered part of the above Progress Note. Hospital Course: I examined the patient independently, review the chart and discussed finding with Dr. Flower. He agrees with the plan of care. <Tye Flower - Last Filed: 12/27/16 07:56> Exam Vital signs: Temperature 97.8 F 12/25/16 12:00 Pulse Rate 62 12/25/16 12:00 Respiratory Rate 24 12/25/16 12:00 Blood Pressure 160/70 H 12/25/16 12:00 Pulse Oximetry 95 12/25/16 12:00 Assessment and Plan - Assessment and Plan (1) Atrial flutter Status: Acute (2) Paroxysmal atrial fibrillation Status: Chronic (3) Dilated cardiomyopathy Status: Chronic (4) Junctional bradycardia Status: Acute (5) Essential (primary) hypertension Status: Chronic (6) Chronic anticoagulation Status: Chronic (7) Pulmonary edema Status: Acute (8) Presence of permanent cardiac pacemaker Status: Acute (9) Hypoxia Status: Acute - Attestation Attestation Narrative: 12/27/16 07:56 Recommendation After examining the patient I agree with the above assessment. I am involved in the formulation of the patient's plan of care. Hospital Course Summary Disclaimer: The visit summary below is not to be considered part of the above Progress Note.
[2016-12-24] MEDS ORDERED: FALL RISK - PHARMACY CONSULT MC ONE (20:41)
[2016-12-25] MEDS: LEVOTHYROXINE 88 MCG TABLET PO SCH (05:54)
[2016-12-25] MEDS: FLUTICASONE NASAL SPRAY 50mcg EA NOSTRIL SCH (08:21)
[2016-12-25] MEDS: MINOCYCLINE 100 MG CAPSULE PO SCH (08:21)
[2016-12-25] MEDS: AMIODARONE 200 MG TABLET PO SCH (08:21)
[2016-12-25] MEDS: FUROSEMIDE 40 MG TABLET PO SCH ×2 (08:21→12:38)
--- NOTE | 2016-12-25 09:46 | Discharge Summary ---
<Zo Krueger - Last Filed: 12/25/16 09:41> Discharge Information Date of admission: 12/20/16 16:47 Anticipated date of discharge: 12/25/16 Attending Physician: Tye Flower MD - Discharge Diagnosis (1) Atrial flutter Status: Acute (2) Paroxysmal atrial fibrillation Status: Chronic (3) Dilated cardiomyopathy Status: Chronic (4) Junctional bradycardia Status: Acute (5) Essential (primary) hypertension Status: Chronic (6) Chronic anticoagulation Status: Chronic (7) Pulmonary edema Status: Acute (8) Presence of permanent cardiac pacemaker Status: Acute (9) Hypoxia Status: Acute - Procedures Procedures: DATE OF PROCEDURE December 19, 2016 The patient is a pleasant 89-year-old lady who was seen in the office who was in atrial flutter with rapid ventricular rate on chronic anticoagulation and was admitted and referred for DC cardioversion. Informed consent was obtained after explaining the procedure and the potential risks to the patient who agreed to proceed with the procedure. PROCEDURE Cardioversion. Conscious sedation was performed using Versed and fentanyl. Anterior-posterior Zoll pads were applied. 360 joules of energy were delivered in synchronized manner and patient converted from atrial flutter into junctional rhythm with a slow heartbeat in the 30s. She tolerated the procedure well with no complications. IMPRESSION DC cardioversion of atrial flutter into slow junctional rhythm. Will continue anticoagulation and wait for the Cardizem to wear off and follow her rate and rhythm. 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 12/20/16 [place] [employer] dual chamber pacemaker insertion - Laboratory Labs: 12/25/16 04:28 12/25/16 04:28 Hospital Course This is a general summary of the patient's hospital course. For more details refer to the complete medical record. Hospital course: 12/21/16 Pulmonary edema - Hypoxia overnight with O2 up to 15L - Continue diuresis with home dose Lasix 80mg po BID today - Repeat BNP, BMP MAG in am Junctional bradycardia: - S/P [place] [employer] PPM, incision clean dry and intact, incision well approximated Atrial flutter - DCCV out of Flutter, into junctional bradycardia Paroxysmal atrial fibrillation - Started on Amiodarone 150mg IV bolus, followed by Amiodarone 400mg po BID X 7days then 200mg daily. - Continue coumadin, INR subtherapeutic today, administer Lovenox, recheck in am Dilated cardiomyopathy - Continue Coreg 12/22/16 Pulmonary edema: - Improved. Exercise oximetry has been ordered to asses for home O2 needs. - repeat chest x-ray in am. Paroxysmal atrial fibrillation - INR 1.33 today, administered Coumadin 7.5mg, repeat INR in am. Remains on Lovenox. 12/23/16 - Seen by Dr. Crisostomo - developed pocket hematoma. Hold Lovenox and will hold warfarin for today. Per nursing staff hematoma is slightly better. Will continue to monitor, should it become tense or worsen, may need revision. - remains on O2 at 3L/NC 12/24/[address] Flower, want to watch today and discharge tomorrow, - Holding coumadin - hypoxia improving, now on 1L/NC. - Exercise oximetry tomorrow to reevaluate home O2 needs. Time spent with patient: 25 - 35 minutes DVT Prophylaxis: Coumadin Exam Vital signs: Temperature 97.7 F 12/25/16 07:00 Pulse Rate 60 12/25/16 08:00 Respiratory Rate 20 12/25/16 07:00 Blood Pressure 147/68 H 12/25/16 07:00 Pulse Oximetry 91 12/25/16 07:00 - Constitutional no acute distress, well nourished, cooperative - Routine HEENT Exam Head: Present: normocephalic ENT: Present: mucous membranes moist - Routine Neck Exam Absent: JVD, carotid bruit - Routine Chest/Breast/Axilla Exam Chest wall: Present: pacemaker. Absent: tenderness - Routine Respiratory Exam Present: CTA bilaterally, diminished air movement. Absent: rales - Routine Cardiovascular Exam Present: RRR (paced), no murmur. Absent: JVD - Routine Abdominal Exam Present: soft, normoactive bowel sounds - Routine Extremities Exam Present: edema - Routine Skin Exam Present: intact, dry, warm - Routine Neurological Exam Present: alert, oriented X3 - Routine Psychiatric Exam Present: normal affect, normal thought process Results 12/25/16 04:28 12/25/16 04:28 CBC 12/25/16 Range/Units 04:28 WBC 4.8 (4.5-11.0) T/MM3 RBC 3.98 L (4.00-5.20) M/MM3 Hgb 12.5 (12-16) GM/DL Hct 39.4 (36-46) % Plt Count 141 (130-400) T/MM3 Comprehensive Metabolic Panel 12/25/16 Range/Units 04:28 Sodium 143 (134-144) MEQ/L Potassium 3.6 (3.6-5) MEQ/L Chloride 103 (98-107) MEQ/L Carbon Dioxide 33 H (22-30) MEQ/L BUN 27.0 H (7-17) MG/DL Creatinine 1.0 (0.7-1.2) MG/DL Glucose 109 (65-110) MG/DL Calcium 8.6 (8.4-10.2) MG/DL Intake and Output 12/24/16 12/25/16 12/25/16 22:59 06:59 14:59 Intake Total 890 / 890 0 / 0 620 / 620 Output Total 800 / 800 125 / 125 200 / 200 Balance 90 / 90 -125 / -125 420 / 420 Intake: Oral 890 / 890 0 / 0 620 / 620 Output: Urine 800 / 800 125 / 125 200 / 200 Other: Urine Appearance Clear Clear Clear Urine Color Yellow Yellow Dark Hilaria Urine Odor Normal Normal Stool Color Brown Stool Consistency Soft Formed Size of Bowel Movement Small # Bowel Movements 1 Weight 192 lb 3.889 oz Patient Weight 12/26/16 06:59 Weight 192 lb 3.889 oz - Imaging and Cardiology Echo: report reviewed EKG results: image reviewed Discharge Plan - Med Rec/Dispo Referrals/Follow Up: Tye Flower MD [Physician] - 12/27/16 12:30 pm [facility] Instructions: [facility] Pacemaker, Using Oxygen at Home (DC), Hypoxemia (DC) Additional Instructions: Resume home Coumadin tomorrow. Lab on Friday with incision check and again on Friday. Prescriptions: New Amiodarone [Pacerone] 200 mg PO DAILY #30 tablet Amiodarone [Pacerone] 400 mg PO BID #8 tablet Minocycline [Minocin] 100 mg PO BID #5 capsule Continue Furosemide 80 tab PO BID #0 tab Levothyroxine Sodium 88 mcg PO ACB #0 tab FISH OIL 1,000 mg PO DAILY #0 VITAMIN E 400 units DAILY #0 Acetaminophen 2 tab PO Q6H PRN #0 tab PRN Reason: PAIN Calcium 600 + Vit D Tablet 2 tab BID Potassium Chloride 88 meq BID Warfarin [Coumadin] 5 mg PO FR Carvedilol [Coreg] 6.5 tab PO 2XW #0 tab Lisinopril 10 mg PO TUFR #0 tab Warfarin Sodium 10 mg WE #0 Multivitamin/Iron/Folic Acid [Centrum Complete Multivit Tab] 1 tab PO QDRHS # 0 Lisinopril [Zestril] 5 mg PO SUMOTHSA Warfarin [Coumadin] 8 mg PO SUMOTHSA Carvedilol [Coreg] 1 tab PO 5XW Fluticasone Nasal [place] [Flonase] 1 spray GAGANDEEP BID - Disposition 01 Discharged Home, Self-Care <Tye Flower - Last Filed: 12/27/16 08:12> Discharge Information Date of admission: 12/20/16 16:47 Attending Physician: Tye Flower MD - Discharge Diagnosis (1) Atrial flutter Status: Acute (2) Paroxysmal atrial fibrillation Status: Chronic (3) Dilated cardiomyopathy Status: Chronic (4) Junctional bradycardia Status: Acute (5) Essential (primary) hypertension Status: Chronic (6) Chronic anticoagulation Status: Chronic (7) Pulmonary edema Status: Acute (8) Presence of permanent cardiac pacemaker Status: Acute (9) Hypoxia Status: Acute - Laboratory Labs: 12/25/16 04:28 12/25/16 04:28 Hospital Course This is a general summary of the patient's hospital course. For more details refer to the complete medical record. Exam Vital signs: Temperature 97.8 F 12/25/16 12:00 Pulse Rate 62 12/25/16 12:00 Respiratory Rate 24 12/25/16 12:00 Blood Pressure 160/70 H 12/25/16 12:00 Pulse Oximetry 95 12/25/16 12:00 Results 12/25/16 04:28 12/25/16 04:28 Discharge Plan - Med Rec/Dispo - Attestation Attestation Narrative: 12/27/16 08:12 Recommendation After examining the patient I agree with the above assessment. I am involved in the formulation of the patient's plan of care.
[2016-12-25 12:08] VITALS: BP 160/70; RESP 24; TEMP 97.8; O2SAT 95
[2016-12-25] MEDS: WARFARIN 5 MG TABLET PO SCH ×2 (12:38→12:41)
[2016-12-25 12:44] VITALS: PULSE 62
[2016-12-27] MEDS ORDERED: AMIODARONE 200 MG TABLET PO SCH (09:00)
[2016-12-27] MEDS ORDERED: WARFARIN 5 MG TABLET PO SCH (12:00)
== END 2016-12-25 16:00 | disposition home or self-care (01) | DRG 242 ==
LOC: CCU → EDSDCBED → SUR 11:13 → SRG 12-20 17:02
PROVIDERS: ADMIT Internal Medicine Cardiovascular Disease; ATTEND Internal Medicine Cardiovascular Disease